=== PATIENT | female | born 1975 | race Caucasian/White ===

== ENCOUNTER → 2016-06-07 | Outpatient (CLI) | payer OTHER ==
--- NOTE | 2016-06-07 08:19 | US ---
EXAMINATION TYPE: US abdomen complete DATE OF EXAM: 06/07/2016 8:06 AM COMPARISON: NONE CLINICAL HISTORY: pt states rt upper quad and rt flank pain x at least 2 months, unable to eat. EXAM MEASUREMENTS: Liver Length: 15.9cm Gallbladder Wall: 0.2cm CBD: 0.3cm Spleen: 9.2cm Right Kidney: 11.5 x 4.0 x 5.3cm Left Kidney: 10.4 x 5.9 x 5.8cm Findings: Pancreas: Pancreas limited by bowel gas Liver: wnl Gallbladder: wnl, no wall thickening Evidence for sonographic Bustos's sign: no CBD: wnl Spleen: wnl Right Kidney: wnl Left Kidney: wnl Upper IVC: wnl Abd Aorta: wnl The liver is homogenous. The intrahepatic portion of the IVC and proximal abdominal aorta are within normal limits. There is no evidence of cholelithiasis. Common bile duct is unremarkable. The sple en is unremarkable. Kidneys are symmetric and free of hydronephrosis. No renal lesions are seen. IMPRESSION: 1. No acute process. Normal Values: Liver Length: < 16cm wnl, 17-18cm upper limits, >18cm enlarged Spleen Length = < 13cm Renal Length = 9 - 12cm GB Wall: < 0.3cm CBD: < 0.6cm or < 1.0cm post cholecystectomy
--- NOTE | 2016-06-07 09:05 | FL ---
EXAMINATION TYPE: FL UGI DATE OF EXAM: 06/07/2016 8:58 AM COMPARISON: NONE HISTORY: Abdominal pain and reflux with heartburn TECHNIQUE: A single/double contrast UGI study is performed. FINDINGS: [place] Coverer image of the abdomen shows no gross abnormality. The esophagus shows normal motility and emptying into the stomach. There is evidence of a small to mo derate-sized hiatal hernia with extensive gastroesophageal reflux. No evidence of obstruction althoug h there is mild irregularity along the distal esophagus which could be seen with esophagitis. Mucosal lesion not excluded. The stomach shows normal distensibility, peristalsis, and mucosal folds. No ev idence of any mass or ulcer disease. No significant gastroesophageal reflux was seen during real gala e performance of this study. The duodenal bulb, sweep, and proximal small bowel loops are unremarkable. IMPRESSION: 1. Small moderate sized hiatal hernia with extensive gastroesophageal reflux. 2. Slight irregularity of the distal mucosal esophagus most likely in the basis of reflux esophagitis . Correlate with direct visualization to exclude Hinds's esophagus or mucosal lesion.
== END | disposition home or self-care (01) ==
LOC: RADFLWHC 07:44
PROVIDERS: ATTEND Family Medicine
DX: K44.9 Diaphragmatic hernia without obstruction or gangrene (principal); K21.9 Gastro-esophageal reflux disease without esophagitis
CPT/HCPCS: 74240; 76700

== ENCOUNTER 2016-07-01 07:15 | Day surgery (SDC) | payer OTHER ==
[2016-06-28 11:56] VITALS: BMI 26.6
[~2016-07-01 07:15] MED LIST: LACTATED RINGERS 1,000 ML IV SCH
[2016-07-01] MEDS ORDERED: LACTATED RINGERS 1,000 ML IV ONE ×2 (07:26→08:01)
[2016-07-01 07:28] VITALS: RESP 16; TEMP 96.9
[2016-07-01] MEDS ORDERED: LIDOCAINE 1% INJ 10MG/ML (20 ML MDV) ONE (07:41)
[2016-07-01] MEDS ORDERED: PROPOFOL 10 MG/ML 20 ML VIAL IV ONE (07:41)
--- NOTE | 2016-07-01 07:50 | P.GSHP ---
History of Present Illness H&P Date: 07/01/16 Chief Complaint: GERD Is a 40-year-old female with long-standing problems reflux esophagitis. Patient states that she's had reflux for years. Apparently her esophagram shows evidence of reflux Past Medical History Past Medical History: Diabetes Mellitus History of Any Multi-Drug Resistant Organisms: None Reported Past Surgical History: No Surgical Hx Reported Past Anesthesia/Blood Transfusion Reactions: No Reported Reaction Additional Past Anesthesia/Blood Transfusion Reaction / Comment(s): FIRST ANESTHETIC Past Psychological History: Anxiety, Panic Disorder Smoking Status: Current every day smoker Past Alcohol Use History: Rare Additional Past Alcohol Use History / Comment(s): STARTED SMOKING AT AGE 31 SMOKES 1/2PPD Past Drug Use History: None Reported - Past Family History Mother Family Medical History: No Reported History Medications and Allergies Home Medications Medication Instructions Recorded Confirmed Type Acetaminophen Tab [Tylenol Tab] 650 mg PO Q4H PRN 01/01/16 07/01/16 History LORazepam [Ativan] 2 mg PO TID PRN 04/01/16 07/01/16 History Methocarbamol [Robaxin] 500 mg PO BID PRN 04/01/16 07/01/16 History Ranitidine HCl [Zantac] 150 mg PO BID 06/28/16 07/01/16 History Sucralfate [Carafate] 1 gm PO QID 06/28/16 07/01/16 History Allergies Allergy/AdvReac Type Severity Reaction Status Date / Time Penicillins Allergy Anaphylaxis Verified 07/01/16 07:24 Surgical - Exam Vital Signs Temp Pulse Resp BP Pulse Ox 96.9 F L 84 16 118/78 99 07/01/16 07:26 07/01/16 07:26 07/01/16 07:26 07/01/16 07:26 07/01/16 07:26 - General well developed, no distress - Eyes PERRL - ENT normal pinna - Neck no masses - Respiratory normal expansion - Cardiovascular Rhythm: regular - Abdomen Abdomen: soft, non tender Assessment and Plan Plan: GERD. We'll perform EGD.
--- NOTE | 2016-07-01 07:57 | P.OP ---
Date of Procedure: 07/01/16 Preoperative Diagnosis: GERD Postoperative Diagnosis: Antral gastritis Large hiatal hernia Esophagitis Procedure(s) Performed: EGD Anesthesia: MAC Surgeon: Brandon Simon Pathology: other (Antral, esophagus) Condition: stable Disposition: PACU Description of Procedure: The patient's placed on the endoscopy table in the lateral position. She received IV sedation. The gastroscope some placed oropharynx passed into the esophagus and into the stomach. Scope was then placed through the pylorus. The first and second portion of duodenum appeared normal. Scope was then brought back the antrum and this appeared mildly inflamed. A biopsies was performed. The scope was then retroflexed and there was a large hiatal hernia seen. The GE junction was at 38 cm. There is evidence of esophagitis. The distal esophagus was biopsied. The proximal esophagus appeared normal. Scope was withdrawn for patient.
[2016-07-01] MEDS ORDERED: IV FLUID CONTINUATION 1,000 ML IV ONE (08:01)
[2016-07-01 08:25] VITALS: BP 117/83; PULSE 68
== END 2016-07-01 08:58 | disposition home or self-care (01) ==
LOC: ORWHC2ENDO 07:15
PROVIDERS: ATTEND Surgery
DX: K21.0 Gastro-esophageal reflux disease with esophagitis (principal); K29.50 Unspecified chronic gastritis without bleeding; K44.9 Diaphragmatic hernia without obstruction or gangrene; F39 Unspecified mood [affective] disorder; F17.200 Nicotine dependence, unspecified, uncomplicated; Z88.0 Allergy status to penicillin; Z79.899 Other long term (current) drug therapy
CPT/HCPCS: 81025; 88305; 88342; 43239; J2001; J2704

== ENCOUNTER 2016-07-24 14:54 | Day surgery (SDC) | payer OTHER ==
[2016-07-22 09:27] VITALS: BMI 25.8
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
[~2016-07-24 14:54] MED LIST changes: +CLINDAMYCIN 900 MG in DEXTROSE 5% IN WATER 50 ML IVPB ONE; +DEXAMETHASONE SOD PHOSPHATE 10 MG/ML 1 ML VIAL IV ONE; +GENTAMICIN 320 MG in SODIUM CHLORIDE 0.9% 100 ML IVPB ONE; +HEPARIN SODIUM,PORCINE 5,000 UNIT/ML 1 ML VIAL SQ ONE; +HYDROmorphone 1 MG/ML 1 ML SYRINGE IVP PRN; +MIDAZOLAM 2 MG/2 ML VIAL IV PRN; +ONDANSETRON 4 MG/2 ML VIAL IVP ONE
[2016-07-24 15:08] VITALS: BP 142/93; PULSE 98; RESP 16; TEMP 98.1
== END 2016-07-24 15:17 | disposition home or self-care (01) ==
LOC: 2ORWHC 14:54 → UNDOADMIN 14:54 → OR 14:54 → EDSTATUS 15:05 → OR 15:17 → UNDODISIN 15:17
PROVIDERS: ATTEND Surgery
DX: K21.0 Gastro-esophageal reflux disease with esophagitis (principal); Z53.8 Procedure and treatment not carried out for other reasons; K44.9 Diaphragmatic hernia without obstruction or gangrene; F41.9 Anxiety disorder, unspecified; F41.0 Panic disorder [episodic paroxysmal anxiety]; F17.200 Nicotine dependence, unspecified, uncomplicated; Z79.891 Long term (current) use of opiate analgesic; Z79.899 Other long term (current) drug therapy; Z88.0 Allergy status to penicillin

== ENCOUNTER 2016-07-25 09:15 | Inpatient (IN) | payer OTHER ==
[2016-07-25] MEDS ORDERED: LACTATED RINGERS 1,000 ML IV ONE ×2 (10:25→12:53)
[2016-07-25] MEDS ORDERED: LIDOCAINE 1% 20 ML VIAL (10MG/ML) FOR IV START INTRADERMA ONE (10:25)
[2016-07-25] MEDS ORDERED: HEPARIN SODIUM,PORCINE 5,000 UNIT/ML 1 ML VIAL SQ ONE ×2 (10:38→11:00)
[2016-07-25] MEDS ORDERED: HYDROmorphone 1 MG/ML 1 ML SYRINGE IVP PRN ×2 (10:39→12:53)
[2016-07-25] MEDS ORDERED: SCOPOLAMINE 1.5MG/72HR PATCH TRANSDERM ONE (10:39)
[2016-07-25] MEDS ORDERED: ONDANSETRON 4 MG/2 ML VIAL IVP ONE ×2 (10:39→13:43)
[2016-07-25] MEDS ORDERED: LIDOCAINE 1% 20 ML VIAL (10MG/ML) FOR IV START INTRADERMA PRN (10:39)
[2016-07-25] MEDS ORDERED: DEXAMETHASONE SOD PHOSPHATE 10 MG/ML 1 ML VIAL IV ONE (10:39)
[2016-07-25] MEDS ORDERED: MIDAZOLAM 2 MG/2 ML VIAL IV PRN (10:39)
[2016-07-25] MEDS ORDERED: CLINDAMYCIN 900 MG in DEXTROSE 5% IN WATER 50 ML IVPB ONE ×2 (11:00)
[2016-07-25] MEDS ORDERED: MIDAZOLAM 2 MG/2 ML VIAL ONE (11:58)
[2016-07-25] MEDS ORDERED: SUCCINYLCHOLINE CHLORIDE 100 MG/5 ML SYR IV ONE (11:58)
[2016-07-25] MEDS ORDERED: PROPOFOL 10 MG/ML 20 ML VIAL IV ONE (11:58)
[2016-07-25] MEDS ORDERED: ROCURONIUM BROMIDE 10 MG/ML 10 ML VIAL IV ONE (11:58)
[2016-07-25] MEDS ORDERED: HYDROmorphone (PF) 1 MG/ML ONE (11:58)
[2016-07-25] MEDS ORDERED: PHENYLEPHRINE-0.9% NACL SYG 1 MG/10 ML SYRINGE ONE (11:58)
[2016-07-25] MEDS ORDERED: fentaNYL (PF) 50 MCG/ML 2 ML AMP ONE (11:58)
[2016-07-25] MEDS ORDERED: GLYCOPYRROLATE 0.2 MG/ML 2 ML VIAL ONE (11:58)
[2016-07-25] MEDS ORDERED: LIDOCAINE 1% INJ 10MG/ML (20 ML MDV) ONE (11:58)
[2016-07-25] MEDS ORDERED: NEOSTIGMINE 1 MG/ML 10 ML VIAL ONE (11:58)
[2016-07-25] MEDS ORDERED: BUPIVACAIN-EPI 0.25%-1:200,000 30 ML VIAL SQ ONE (12:18)
[2016-07-25] MEDS: LACTATED RINGERS 1,000 ML IV SCH ×2 (12:42→21:16)
[2016-07-25] MEDS ORDERED: ONDANSETRON 4 MG/2 ML VIAL IVP PRN (12:53)
[2016-07-25] MEDS ORDERED: NALOXONE 0.4 MG/ML 1 ML VIAL IV PRN (12:53)
--- NOTE | 2016-07-25 12:53 | P.OP ---
Date of Procedure: 07/25/16 Preoperative Diagnosis: GERD Postoperative Diagnosis: GERD Procedure(s) Performed: Laparoscopic Harvey fundal plication Anesthesia: ELLEN Surgeon: Brandon Simon Estimated Blood Loss (ml): 5 Pathology: none sent Condition: stable Disposition: PACU Description of Procedure: he was placed on the operating table in the supine position. The patient received general anesthesia. And was placed in dorsal lithotomy position. The patient was prepped and draped in the usual sterile fashion. The skin incision sites were anesthetized with 1% local Xylocaine. The skin was incised in the left periumbilical area and then using a blade less 5 mm trocar under direct visualization panel cavity was entered. After adequate insufflation the laparoscope was then placed into the peritoneal cavity. Next a 5 mm trochars placed in the right epigastric position. Another 5 millimeter trocar the right lateral position. Another 5 millimeter trocar in the left lateral position a 5 mm trocar is placed in the left epigastric position. And then the initial 5 mm trocar was exchanged for a 10 mm trocar. The left lateral lobe liver was retracted. The hernia was seen. The crural defect was then dissected using the Harmonic scissors device. A 360 crural dissection was performed the esophagus stomach was reduced back into the peritoneal Cavity. The crural defect was then closed using 2-0 Ethibond suture. Next the fundus of the stomach was mobilized using the [place] scissors device. and then a 58-Russian bougie dilator was placed oropharynx passed into the esophagus and stomach the fundal plication wrap was then performed by grasping the fundus posteriorly and bringing it around the esophagus and stomach fundoplication was then performed using 2-0 Ethibond suture. Care was taken that the fundal location rested over top of the intra-abdominal esophagus. There was no injury seen to the stomach or esophagus. The dilator was then withdrawn. The abdomen was irrigated there is no bleeding seen. The trochars were then withdrawn and then skin incision sites were closed using 3-0 Monocryl suture Steri-Strips are applied. Patient thought procedure well and sent to recovery room in stable condition.
[2016-07-25] MEDS: KETOROLAC 30 MG/ML 1 ML VIAL IVP SCH ×3 (13:35→16:02)
[2016-07-25] MEDS ORDERED: HYDROmorphone 1 MG/ML 1 ML SYRINGE IVP ONE (14:12)
--- NOTE | 2016-07-25 16:54 | FL ---
EXAMINATION TYPE: FL UGI w esophagus DATE OF EXAM: 07/25/2016 4:49 PM LIMITED UGI-ESOPHAGRAM: CLINICAL HISTORY: History of hiatal hernia and reflux-like symptoms without improvement on medicatio n status post Ga fundoplication surgery earlier today TECHNIQUE: Limited esophagram is performed utilizing 20 oz of Omnipaque 350. A total of 36 seconds o f fluoroscopic time was utilized during procedure. Comparison is made with upper GI study June 07, 2016 FINDINGS: The patient swallowed contrast without difficulty or delay. Esophageal peristalsis and mo tility are within normal limits. There is some delay in flow of contrast along the diaphragmatic hiat us into the stomach, there is no evidence of contrast extravasation to suggest leak. Small amount raman e air under right hemidiaphragm is noted presumed postsurgical No persistent hiatal hernia is seen. P atient remains asymptomatic. IMPRESSION: No evidence of leak or significant obstruction status post Ga fundoplication surgery earlier today. Mild to borderline moderate obstruction at diaphragmatic hiatus is noted but the patie nt is noted to remain asymptomatic.
[2016-07-25] MEDS: HYDROcodone/APAP 5-325MG 1 EACH TAB PO PRN ×2 (17:38→22:41)
[2016-07-26] MEDS: KETOROLAC 30 MG/ML 1 ML VIAL IVP SCH ×2 (00:35→08:42)
[2016-07-26 02:17] VITALS: BP 122/63; PULSE 97; RESP 16; TEMP 99.4
[2016-07-26] MEDS: HYDROcodone/APAP 5-325MG 1 EACH TAB PO PRN ×2 (04:45→10:15)
[2016-07-26 10:12] VITALS: BMI 26.6
--- NOTE | 2016-07-26 16:38 | CONS ---
DATE OF CONSULTATION: 07/26/[address] Simon. CHIEF COMPLAINT: Reflux esophagitis. HISTORY OF PRESENT ILLNESS: This lady is in for elective Harvey fundoplasty. REVIEW OF SYSTEMS: She has had no neurologic problems. No chest pain or shortness of breath, hematemesis, melena, hematochezia, jaundice, hepatitis, hematuria, frequency, urgency, etc. Past medical history, family history, history and personal and social histories: Otherwise unremarkable and noncontributory and can be found in her history and physical. ALLERGIC TO PENICILLIN. She has been on: 1. Carafate. 2. Zantac. 3. [place]. 4. Methocarbamol. 5. Prilosec. 6. Ativan. PHYSICAL EXAMINATION: Blood pressure 110/70 with pulse 82, respirations 16, temperature 98.8. GENERAL: She appeared to be well-developed, well-nourished, in no acute distress. SKIN: Skin color is normal. Skin is warm and dry. Lymph nodes are not enlarged. Head, ears, eyes, mouth, and throat were normal. NECK: Neck veins not distended. Thyroid is not enlarged. Chest is clear. Cardiac exam is normal in size and nontender. EXTREMITIES: Normal. NEUROLOGICAL: Intact. She is admitted to the hospital with diagnosis: Reflux esophagitis. RECOMMENDATIONS: None
--- NOTE | 2016-07-26 16:43 | PN ---
DATE OF SERVICE: 07/26/2016 CHIEF COMPLAINT: Status post Harvey fundoplasty. HISTORY OF PRESENT ILLNESS: This lady is doing well and she is having no abdominal pain, fever, chills, etc. She has had no dysphagia. PHYSICAL EXAMINATION: CHEST: Clear. CARDIAC: Normal. ABDOMEN: Soft, nontender. Incisions look good. IMPRESSION: Status post Harvey fundoplasty for reflux. PLAN: Home today and follow up with Dr. Simon as well as our office.
--- NOTE | 2016-11-15 12:47 | P.DS ---
Providers Date of admission: 07/25/16 09:45 Expected date of discharge: 07/26/16 Attending physician: Brandon Simon Consults: 07/25/16 12:53 Consult Physician Routine Consulting Provider: George Pop Consult Reason/Comments: Medical management Do you want consulting provider notified?: Yes Primary care physician: George Ungerhven Hospital Course: This a 41-year-old female who underwent laparoscopic dislocation. Her postoperative stay was unremarkable. Please see chart for details. Procedures: Her scalp Harvey fundal plication Patient Condition at Discharge: Good Plan - Discharge Summary New Discharge Prescriptions: New HYDROcodone/APAP 7.5-325MG [[place] 7.5-325] 1 tab PO Q6HR PRN #28 tab PRN Reason: Pain Continue LORazepam [Ativan] 2 mg PO TID PRN PRN Reason: Anxiety HYDROcodone/APAP 5-325MG [[place] 5-325] 1 tab PO Q6H PRN MDD 4 TABS/24HR PRN Reason: Moderate Pain Discontinued Ranitidine HCl [Zantac] 150 mg PO BID Discharge Medication List LORazepam [Ativan] 2 mg PO TID PRN 04/01/16 [History] HYDROcodone/APAP 5-325MG [[place] 5-325] 1 tab PO Q6H PRN MDD 4 TABS/24HR [History] HYDROcodone/APAP 7.5-325MG [[place] 7.5-325] 1 tab PO Q6HR PRN #28 tab 07/26/16 [ Rx] Follow up Appointment(s)/Referral(s): George Pop MD [Primary Care Provider] - 08/05/16 12:30 pm Brandon Simon MD [STAFF PHYSICIAN] - 08/08/16 2:20 pm Patient Instructions/Handouts: *Surgery [facility] - ([facility]) Lap Harvey Fundiplication Post-Op Instructions Activity/Diet/Wound Care/Special Instructions: No heavy lifting, pushing, or pulling items greater than 10 pounds. Full liquid diet for 2 weeks. No caffeinated beverages or straws. Shower daily, no soaking in bath tubs, pools, or hot tubs. No driving while taking pain medication. Notify surgeon with any signs or symptoms of infection, increased pain, or not tolerating diet. Discharge Disposition: HOME SELF-CARE
== END 2016-07-26 13:36 | disposition home or self-care (01) | DRG 328 ==
LOC: 2ORWHC 09:45 → UNDOADMIN 14:20 → 3SUR 14:33
PROVIDERS: ADMIT Surgery; ATTEND Surgery
PROC: 0DV44ZZ Restriction of Esophagogastric Junction, Percutaneous Endoscopic Approach (ICD-10-PCS; principal; 2016-07-25 12:15)
DX: K21.0 Gastro-esophageal reflux disease with esophagitis (principal); F41.9 Anxiety disorder, unspecified; K44.9 Diaphragmatic hernia without obstruction or gangrene; M54.9 Dorsalgia, unspecified; F41.0 Panic disorder [episodic paroxysmal anxiety]; F17.200 Nicotine dependence, unspecified, uncomplicated; Z88.0 Allergy status to penicillin; Z79.891 Long term (current) use of opiate analgesic; Z79.899 Other long term (current) drug therapy; Z87.828 Personal history of other (healed) physical injury and trauma
CPT/HCPCS: 74240; 81025

== ENCOUNTER → 2016-09-11 | Outpatient (CLI) | payer OTHER ==
--- NOTE | 2016-09-11 15:38 | CT ---
EXAMINATION TYPE: CT angio chest DATE OF EXAM: 09/11/2016 3:10 PM COMPARISON: NONE HISTORY: Shortness of breath and elevated d-dimer. CT DLP: 608.00 mGycm. Automated Exposure Control for Dose Reduction was Utilized. CONTRAST: CTA scan of the thorax is performed with IV Contrast, patient injected with 76 mL of Omnipaque 350, p ulmonary embolism protocol. MIP Images are created on CT scanner and reviewed. FINDINGS: LUNGS: Mild apical scarring bilaterally is present, left greater than right. Minimal linear scarring or atelectasis posterior lateral right lung base is present. No suspicious groundglass opacity or con solidation is seen. No pleural effusion or pneumothorax is present bilaterally. No concerning parench ymal nodule or mass is identified. MEDIASTINUM: There is suboptimal bolus with more dense contrast in the aorta and equal contrast seen in right and left heart systems. Dense pooling contrast in the SVC is present. Worst opacified vesse ls is the pulmonary arterial system No large saddle pulmonary embolism is seen. Smaller segmental and subsegmental PE cannot be excluded on this exam. There are no greater than 1 cm hilar or mediastina l lymph nodes. No cardiomegaly or pericardial effusion is seen. OTHER: Surgical changes from Ga fundoplication surgery are seen just below level of diaphragmatic hiatus. No recurrent hiatal hernia is seen. IMPRESSION: 1. Suboptimal study, no large central pulmonary embolism, smaller segmental and subsegmental PE canno t be excluded on this exam. 2. No suspicious acute pulmonary process is evident.
== END ==
LOC: RADCTMAIN 14:47
PROVIDERS: ATTEND Family Medicine
DX: R06.02 Shortness of breath (principal); R07.9 Chest pain, unspecified; R79.89 Other specified abnormal findings of blood chemistry
CPT/HCPCS: 71275; Q9967

== ENCOUNTER 2017-01-19 01:36 | Emergency (ER) | payer OTHER ==
[2017-01-19] MEDS ORDERED: ASPIRIN 81 MG CHEW PO STA (01:55)
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
[2017-01-19 02:18] LABS: Basophils # (A) 0.1 k/uL (0-0.2); Basophils % (A) 1 %; CH 31.6; CHCM 34.7; Eosinophils # (A) 0.1 k/uL (0-0.7); Eosinophils % (A) 1 %; HCT 40.5 % (34.0-46.0); HDW 2.39; HGB 13.6 gm/dL (11.4-16.0); Luc # (Auto) 0.14; Luc % (Auto) 2; Lymphocytes # (A) 2.9 k/uL (1.0-4.8); Lymphocytes % (A) 35 %; MCH 30.7 pg (25.0-35.0); MCHC 33.5 g/dL (31.0-37.0); MCV 91.5 fL (80.0-100.0); Mean Platelet Volume 7.4; Monocytes # (A) 0.4 k/uL (0-1.0); Monocytes % (A) 5 %; Neutrophils # (A) 4.7 k/uL (1.3-7.7); Neutrophils % (A) 56 %; RBC 4.43 m/uL (3.80-5.40); RDW 13.7 % (11.5-15.5); WBC 8.4 k/uL (3.8-10.6); WBC (Perox) 8.04
[2017-01-19 02:27] LABS: Partial Thromboplastin Time 22.9 sec (22.0-30.0); Prothrombin Time 10.1 sec (9.0-12.0)
[2017-01-19 02:28] LABS: ALT 28 U/L (9-52); AST 19 U/L (14-36); Alkaline Phosphatase 62 U/L (38-126); Amylase 49 U/L (30-110); Anion Gap 13 mmol/L; Blood Urea Nitrogen 21 mg/dL (7-17); Calcium 9.6 mg/dL (8.4-10.2); Carbon Dioxide 24 mmol/L (22-30); Chloride 104 mmol/L (98-107); Glucose 94 mg/dL (74-99); Magnesium 1.9 mg/dL (1.6-2.3); Non-African American GFR(MDRD) >60 (>60 ml/min/1.73 sqM); Sodium 141 mmol/L (137-145); Total Bilirubin 0.3 mg/dL (0.2-1.3)
--- NOTE | 2017-01-19 02:38 | XR ---
EXAM: XR Chest, 2 Views CLINICAL HISTORY: Reason: Chest Pain TECHNIQUE: Frontal and lateral views of the chest. COMPARISON: No relevant prior studies available. FINDINGS: Lungs: Unremarkable. No consolidation. Pleural space: Unremarkable. No pneumothorax. Heart: Unremarkable. No cardiomegaly. Mediastinum: Unremarkable. Bones/joints: Unremarkable. IMPRESSION: Normal chest x-rays.
[2017-01-19 02:40] LABS: Creatine Kinase 177 U/L (30-135)
[2017-01-19 02:53] LABS: Creatine Kinase MB 1.1 ng/mL (0.0-2.4); Troponin I <0.012 ng/mL (0.000-0.034)
[2017-01-19] MEDS ORDERED: KETOROLAC 30 MG/ML 1 ML VIAL IVP STA (03:11)
[2017-01-19 03:21] VITALS: BP 142/82; PULSE 53; RESP 16; TEMP 97.9
== END 2017-01-19 03:25 | disposition home or self-care (01) ==
LOC: EC 01:36
DX: S46.912A Strain of unspecified muscle, fascia and tendon at shoulder and upper arm level, left arm, initial encounter (principal); R07.89 Other chest pain; R11.10 Vomiting, unspecified; F41.9 Anxiety disorder, unspecified; F41.0 Panic disorder [episodic paroxysmal anxiety]; F17.200 Nicotine dependence, unspecified, uncomplicated; Z79.899 Other long term (current) drug therapy; Z88.0 Allergy status to penicillin; X58.XXXA Exposure to other specified factors, initial encounter
CPT/HCPCS: 36415; 93005; 80053; 82150; 82550; 82553; 83690; 83735; 84484; 85025; 85610; 85730; 71020; 99284; 96374; J1885

== ENCOUNTER → 2017-03-18 | Outpatient (CLI) | payer OTHER ==
--- NOTE | 2017-03-18 12:04 | NM ---
EXAMINATION TYPE: NM hepatobiliary w EF DATE OF EXAM: 03/18/2017 COMPARISON: Ultrasound gallbladder 03/17/2017, CT 03/17/2017 HISTORY: Unspecified abdomen pain TECHNIQUE: After the intravenous administration of 5.76 mCi Tc 99m Mebrofenin hepatobiliary scintigra phy is performed. Immediate images post injection. FINDINGS: There is satisfactory initial accumulation of tracer by the liver. The gallbladder is visualized wit hin 10 minutes. The small bowel activity is noted within 4 minutes. At one hour 8 ounces of oral en sure plus is given to mimic CCK and gallbladder ejection fraction is calculated at 64 %, in the yany l range. Therefore there is no scintigraphic evidence of cystic or common bile duct obstruction to s uggest acute cholecystitis or gallbladder dyskinesia. IMPRESSION: Exam is within normal limits.
== END ==
LOC: RADNMMAIN 09:09
PROVIDERS: ATTEND Emergency Medicine
DX: R10.9 Unspecified abdominal pain (principal)
CPT/HCPCS: 78226; A9537

== ENCOUNTER 2017-05-31 12:44 | Emergency (ER) | payer OTHER ==
[2017-05-31] MEDS ORDERED: SODIUM CHLORIDE 0.9% 1,000 ML IV STA (13:13)
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
[2017-05-31 13:37] LABS: Basophils # (A) 0.1 k/uL (0-0.2); Basophils % (A) 1 %; Eosinophils # (A) 0.2 k/uL (0-0.7); Eosinophils % (A) 2 %; HCT 36.9 % (34.0-46.0); HGB 12.5 gm/dL (11.4-16.0); Lymphocytes # (A) 1.6 k/uL (1.0-4.8); Lymphocytes % (A) 20 %; MCH 30.1 pg (25.0-35.0); MCV 88.7 fL (80.0-100.0); Mean Platelet Volume 6.6; Monocytes # (A) 0.2 k/uL (0-1.0); Monocytes % (A) 3 %; Neutrophils # (A) 6.1 k/uL (1.3-7.7); Neutrophils % (A) 74 %; Platelet Count 305 k/uL (150-450); RBC 4.16 m/uL (3.80-5.40); RDW 12.4 % (11.5-15.5); WBC 8.3 k/uL (3.8-10.6)
[2017-05-31 13:47] LABS: ALT 22 U/L (9-52); AST 15 U/L (14-36); Alkaline Phosphatase 66 U/L (38-126); Anion Gap 12 mmol/L; Blood Urea Nitrogen 12 mg/dL (7-17); Calcium 10.5 mg/dL (8.4-10.2); Carbon Dioxide 23 mmol/L (22-30); Chloride 103 mmol/L (98-107); Glucose 133 mg/dL (74-99); Potassium 3.7 mmol/L (3.5-5.1); Sodium 138 mmol/L (137-145); Total Bilirubin 0.2 mg/dL (0.2-1.3); Total Protein 6.9 g/dL (6.3-8.2)
[2017-05-31 13:57] LABS: Amorphous Sediment,Urine Few /hpf; Appearance,Urine Cloudy (Clear); Bacteria,Urine Rare /hpf; Bilirubin,Urine Negative (Negative); Blood,Urine Negative (Negative); Color,Urine Dark Yellow; Glucose,Urine (UA) Negative (Negative); Ketones,Urine Negative (Negative); Leukocyte Esterase,Urine Negative (Negative); Mucus,Urine Many /hpf; Nitrite,Urine Negative (Negative); PH, Urine 5.5 (5.0-8.0); Protein,Urine 1+ (Negative); RBC,Urine 6 /hpf (0-5); Specific Gravity,Urine 1.025 (1.001-1.035); Sperm,Urine Rare /hpf; Squamous Epithelial Cell,Urine 3 /hpf (0-4); Urobilinogen,Urine <2.0 mg/dL (<2.0); WBC,Urine 3 /hpf (0-5)
--- NOTE | 2017-05-31 14:10 | US ---
EXAMINATION TYPE: US OB <= 14 wk fetus DATE OF EXAM: 05/31/2017 COMPARISON: NONE CLINICAL HISTORY: Pain. EXAM PERFORMED: Transabdominal (TA) EXAM MEASUREMENTS: GESTATIONAL AGE / DATING Physician Established: not yet established Dates by LMP: (11 weeks/1 days) EDC: 12/19/17 Dates by First Scan: 1st scan today Dates by Current Scan:(11 weeks/1 days) EDC: 12/19/17 MATERNAL ANATOMY Uterus: 13.5 x 8.0 x 9.8cm Right Ovary: 2.5 x 2.0x 2.1cm Left Ovary: 4.1 x 3.6 x 3.5cm Post CDS / Adnexa: wnl GESTATION / SURVEY CRL: 4.3 (11 weeks/1 days) Yolk Sac (normal less than 6mm): not seen Heart Rate: 167 bpm Rhythm: Normal IUP: Viable IUP Date of LMP: 03/14/17 Beta HcG (if available): Not available at this time IMPRESSION: The ultrasound gestational age is 11 weeks 1 day. I see no complicating process.
[2017-05-31 14:28] LABS: HCG,Quantitative Serum 60296.4 mIU/mL
[2017-05-31 14:54] VITALS: BP 122/62; PULSE 71; RESP 18; TEMP 97.7
== END 2017-05-31 14:54 | disposition home or self-care (01) ==
LOC: EC 12:44
DX: O99.511 Diseases of the respiratory system complicating pregnancy, first trimester (principal); J01.90 Acute sinusitis, unspecified; O99.89 Other specified diseases and conditions complicating pregnancy, childbirth and the puerperium; R10.30 Lower abdominal pain, unspecified; O36.0910 Maternal care for other rhesus isoimmunization, first trimester, not applicable or unspecified; O99.331 Smoking (tobacco) complicating pregnancy, first trimester; F17.200 Nicotine dependence, unspecified, uncomplicated; Z98.890 Other specified postprocedural states; Z87.19 Personal history of other diseases of the digestive system; Z88.0 Allergy status to penicillin; Z3A.11 11 weeks gestation of pregnancy
CPT/HCPCS: 36415; 76801; 80053; 81001; 84702; 85025; 86900; 86901; 87086; 96360; 99284

== ENCOUNTER → 2017-07-08 | Outpatient (CLI) | payer OTHER ==
[2017-07-08 22:56] LABS: Hemoglobin A1C 4.9 % (4.0-6.0)
[2017-07-09 05:41] LABS: Toxoplasma Antibody (IgG) 93.3 IU/mL (<7.2); Toxoplasma Antibody (IgM) 30.5 AU/mL (<8.0)
== END | disposition home or self-care (01) ==
LOC: LABWHC1 15:11
PROVIDERS: ATTEND Obstetrics & Gynecology
DX: Z34.82 Encounter for supervision of other normal pregnancy, second trimester (principal); T75.89XA Other specified effects of external causes, initial encounter
CPT/HCPCS: 36415; 82947; 83036; 86777; 86778

== ENCOUNTER 2017-07-21 16:51 | Emergency (ER) | payer OTHER ==
[2017-07-21 17:31] VITALS: RESP 18
[2017-07-21 17:39] LABS: Appearance,Urine Clear (Clear); Bilirubin,Urine Negative (Negative); Blood,Urine Negative (Negative); Color,Urine Colorless; Glucose,Urine (UA) Negative (Negative); Ketones,Urine Negative (Negative); Leukocyte Esterase,Urine Negative (Negative); Nitrite,Urine Negative (Negative); Protein,Urine Negative (Negative); Specific Gravity,Urine 1.002 (1.001-1.035); Urobilinogen,Urine <2.0 mg/dL (<2.0)
[2017-07-21] MEDS ORDERED: SODIUM CHLORIDE 0.9% 1,000 ML IV STA (18:50)
--- NOTE | 2017-07-21 18:56 | ED ---
Female Urogenital HPI - General Chief complaint: Urogenital Stated complaint: Urogenital, 19 wks preg Time Seen by Provider: 07/21/17 18:40 Source: patient Mode of arrival: ambulatory Limitations: no limitations - History of Present Illness Initial comments: Pt , 3 SAB, currently 19 weeks preg. Follows with OB in [place] for high risk. Patient presents with "pressure", that is mild across pelvic region for the past 2 hours. Patient denies cramps, contractions. Patient denies vaginal bleeding or discharge, denies fluid leakage, N/V, fevers, chills. Patient does note that she's had 4-5 episodes of diarrhea today. Patient also states she's been urinating more frequently today than normally. MD Complaint: pelvic pain - Related Data Home Medications Medication Instructions Recorded Confirmed Oxymetazoline 0.05% Nasl [place] 2 spray EA NOSTRIL BID PRN 07/21/17 07/21/17 [Afrin 0.05% Nasal [place]] Pedi Multivit No.25/Folic Acid 300 mcg PO DAILY 07/21/17 07/21/17 [Fl[place] Multivit Chew Tab] Allergies Allergy/AdvReac Type Severity Reaction Status Date / Time Penicillins Allergy Anaphylaxis Verified 07/21/17 18:53 Review of Systems ROS Statement: Those systems with pertinent positive or pertinent negative responses have been documented in the HPI. ROS Other: All systems not noted in ROS Statement are negative. Constitutional: Denies: fever, chills, weakness Eyes: Denies: vision change ENT: Denies: throat pain, congestion Respiratory: Denies: cough, dyspnea Cardiovascular: Denies: chest pain, palpitations, syncope Endocrine: Denies: fatigue Gastrointestinal: Reports: abdominal pain, diarrhea. Denies: nausea, vomiting, constipation, hematemesis, melena, hematochezia Genitourinary: Reports: frequency. Denies: hematuria, discharge Musculoskeletal: Denies: back pain Skin: Denies: rash, change in color Neurological: Denies: headache Past Medical History Past Medical History: GERD/Reflux Additional Past Medical History / Comment(s): BACK PAIN, HIATAL HERNIA., History of Any Multi-Drug Resistant Organisms: None Reported Past Surgical History: Hernia Repair Additional Past Surgical History / Comment(s): EGD Past Anesthesia/Blood Transfusion Reactions: No Reported Reaction Additional Past Anesthesia/Blood Transfusion Reaction / Comment(s): FIRST ANESTHETIC Past Psychological History: Anxiety, Panic Disorder Smoking Status: Former smoker Past Alcohol Use History: None Reported Past Drug Use History: None Reported - Past Family History Mother Family Medical History: No Reported History General Exam - General Exam Comments Initial Comments: Sitting up in bed. No acute distress. Conversing normally. Calm, pleasant. Limitations: no limitations General appearance: alert, in no apparent distress Head exam: Present: atraumatic, normocephalic Eye exam: Present: normal appearance, PERRL, EOMI ENT exam: Present: mucous membranes moist Neck exam: Present: normal inspection Respiratory exam: Present: normal lung sounds bilaterally. Absent: respiratory distress, wheezes, rales, rhonchi Cardiovascular Exam: Present: regular rate, normal rhythm GI/Abdominal exam: Present: soft, distended (Gravid). Absent: tenderness, guarding, rebound, rigid Extremities exam: Present: normal inspection Neurological exam: Present: alert, oriented X3 Psychiatric exam: Present: normal affect, normal mood Skin exam: Present: warm, dry, intact, normal color. Absent: rash, cyanosis, diaphoretic Course Vital Signs 07/21/17 17:29 Temperature 98.7 F Pulse Rate 87 Respiratory 18 Rate Blood Pressure 145/79 O2 Sat by Pulse 99 Oximetry Medical Decision Making - Medical Decision Making IV fluids given CBC, BMP, urinalysis all within normal ranges. Feel heart tones assessed by OB team, 140. Spoke with OB Dr. Stern, covering for pt's OB, updated patient condition results , requests OB RN come down to do evaluation of the cervix, states it exam is normal patient can be discharged home with outpatient follow-up. Patient evaluated in the ER by OB nurse, pelvic exam performed, states cervical os was closed, no vaginal bleeding or discharge appreciated, no abnormalities appreciated. Patient updated with results and plan. Was comfortably discharged home. Agrees to follow up with her OB in the morning. Return to ER for new or worsening symptoms. Pt understands and agrees. - Lab Data Result diagrams: 07/21/17 18:57 07/21/17 18:57 Lab Results 07/21/17 07/21/17 07/21/17 Range/Units 17:32 18:57 18:57 WBC 9.3 (3.8-10.6) k/uL RBC 4.00 (3.80-5.40) m/uL Hgb 12.0 (11.4-16.0) gm/dL Hct 36.4 (34.0-46.0) % MCV 91.0 (80.0-100.0) fL MCH 30.1 (25.0-35.0) pg MCHC 33.1 (31.0-37.0) g/dL RDW 13.0 (11.5-15.5) % Plt Count 254 (150-450) k/uL Neutrophils % 75 % Lymphocytes % 19 % Monocytes % 3 % Eosinophils % 1 % Basophils % 0 % Neutrophils # 7.0 (1.3-7.7) k/uL Lymphocytes # 1.8 (1.0-4.8) k/uL Monocytes # 0.3 (0-1.0) k/uL Eosinophils # 0.1 (0-0.7) k/uL Basophils # 0.0 (0-0.2) k/uL Sodium 138 (137-145) mmol/L Potassium 3.7 (3.5-5.1) mmol/L Chloride 106 (98-107) mmol/L Carbon Dioxide 22 (22-30) mmol/L Anion Gap 10 mmol/L BUN 9 (7-17) mg/dL Creatinine 0.53 (0.52-1.04) mg/dL Est GFR (MDRD) Af Amer >60 (>60 ml/min/1.73 sqM) Est GFR (MDRD) Non-Af >60 (>60 ml/min/1.73 sqM) Glucose 89 (74-99) mg/dL Calcium 10.2 (8.4-10.2) mg/dL Urine Color Colorless Urine Appearance Clear (Clear) Urine pH 6.0 (5.0-8.0) Ur Specific [place] 1.002 (1.001-1.035) Urine Protein Negative (Negative) Urine Glucose (UA) Negative (Negative) Urine Ketones Negative (Negative) Urine Blood Negative (Negative) Urine Nitrite Negative (Negative) Urine Bilirubin Negative (Negative) Urine Urobilinogen <2.0 (<2.0) mg/dL Ur Leukocyte Esterase Negative (Negative) Disposition Clinical Impression: Pelvic pain affecting Disposition: HOME SELF-CARE Condition: Good Instructions: Abdominal Pain in (ED) Additional Instructions: Follow-up with your OB doctor in the morning. Return to ER if new or worsening symptoms. Referrals: None,Stated [Primary Care Provider] - 1-2 days
[2017-07-21 19:04] LABS: Basophils % (A) 0 %; Eosinophils # (A) 0.1 k/uL (0-0.7); Eosinophils % (A) 1 %; HCT 36.4 % (34.0-46.0); Lymphocytes # (A) 1.8 k/uL (1.0-4.8); Lymphocytes % (A) 19 %; MCH 30.1 pg (25.0-35.0); MCHC 33.1 g/dL (31.0-37.0); Mean Platelet Volume 6.7; Monocytes # (A) 0.3 k/uL (0-1.0); Monocytes % (A) 3 %; Neutrophils % (A) 75 %; Platelet Count 254 k/uL (150-450); WBC 9.3 k/uL (3.8-10.6)
[2017-07-21 19:17] LABS: Anion Gap 10 mmol/L; Blood Urea Nitrogen 9 mg/dL (7-17); Calcium 10.2 mg/dL (8.4-10.2); Carbon Dioxide 22 mmol/L (22-30); Chloride 106 mmol/L (98-107); Glucose 89 mg/dL (74-99); Potassium 3.7 mmol/L (3.5-5.1); Sodium 138 mmol/L (137-145)
[2017-07-21 20:39] VITALS: BP 133/70; PULSE 80; TEMP 98.6
== END 2017-07-21 20:38 | disposition home or self-care (01) ==
LOC: EC 16:51
DX: O99.89 Other specified diseases and conditions complicating pregnancy, childbirth and the puerperium (principal); R10.2 Pelvic and perineal pain; R19.7 Diarrhea, unspecified; R35.0 Frequency of micturition; Z88.0 Allergy status to penicillin; Z87.891 Personal history of nicotine dependence; Z3A.19 19 weeks gestation of pregnancy; Z79.899 Other long term (current) drug therapy
CPT/HCPCS: 36415; 80048; 81003; 85025; 87086; 96360; 99284

== ENCOUNTER 2017-08-31 17:25 | Outpatient (CLI) | payer OTHER ==
[2017-08-31 18:17] VITALS: BP 132/80; PULSE 97; RESP 18; TEMP 97.9
--- NOTE | 2017-09-17 09:00 | P.MSEPDOC ---
Presenting Problems - Arrival Data Date of Arrival on Unit: 08/31/17 Time of Arrival on Unit: 17:30 Mode of Transport: Wheelchair - Complaint OB-Reason for Admission/Chief Complaint: Pain, Other Comment: shortness of breath with back pain Medical History - Information : 8 Para: 4 Term: 4 : 0 Abortions: Spontaneous or Elective: 4 Number of Living Children: 4 - Gestational Age Gestational Age by KESHAWN (wks/days): 28 Weeks and 2 Days Review of Systems - Review of Systems Constitutional: No problems Breast: No problems ENT: No problems Cardiovascular: No problems Respiratory: No problems Gastrointestinal: No problems Genitourinary: No problems Musculoskeletal: No problems Neurological: No problems Skin: No problems Comment: lungs clear throughout bilateral cummings Vital Signs - Temperature Temperature: 97.9 F Temperature Source: Oral - Pulse Right Brachial Pulse Rate: 97 Pulse Assessment Method: Automatic Cuff - Respirations Respiratory Rate: 18 Oxygen Delivery Method: Room Air O2 Sat by Pulse Oximetry: 99 - Blood Pressure Right Arm Blood Pressure: 132/80 Blood Pressure Mean: 97 Blood Pressure Source: Automatic Cuff Medical Screen Scoring (Pre) - Cervical Exam Dilation: 0 cm = 0 Membranes: Intact - Uterine Contractions Frequency: N/A Duration: N/A Intensity: N/A - Maternal Vital Signs Maternal Temperature: N/A Signs of Preeclampsia: N/A Maternal Respirations: N/A - Pain Assessment Pain Location and Character: Back Pain Scale Used: Numeric (1 - 10) Pain Intensity: 4 Pain Management Goal: 4 Pain Description: *Acute Pain Duration Units: Hours Pain Behavior: Vocalization Pain Aggravating Factors: Breathing Non-Pharmacological Interventions: Position/Reposition, Relaxation Technique - Maternal Trauma Maternal Trauma: N/A - Assessment Baseline FHR: 150 Heart Rate - NICHD Category: Category I (Normal) = 0 NST: Reactive Position: N/A Station: N/A - Total Score Total Score (Pre): 0 - Level of Risk Level of Risk: Low (0-5) Physician Notification (Post) - Physician Notified Physician Notified Date: 08/31/17 Physician Notified Time: 18:18 Physician/Practitioner Notified:: Leena Spoke With: Leena New Order Received: Yes - Notification Comment Comment: pt to go to ER for further evaluation Disposition - Disposition OB Disposition: Transfer to other dept./facility Transferred to:: ER Discharge Date: 08/31/17 Discharge Time: 18:23 I agree with the RN Medical Screening Exam: Yes Risk & Benefit of care provided described in d/c instruction: Yes Diagnosis: SHORTNESS OF BREATH
== END 2017-08-31 18:34 | disposition home or self-care (01) ==
LOC: FBPOP 17:25
PROVIDERS: ATTEND Obstetrics & Gynecology
DX: O99.512 Diseases of the respiratory system complicating pregnancy, second trimester (principal); Z3A.28 28 weeks gestation of pregnancy
CPT/HCPCS: 59025; G0463; 99213

== ENCOUNTER 2017-08-31 18:37 | Emergency (ER) | payer OTHER ==
[2017-08-31 18:44] VITALS: BP 134/70; PULSE 88; TEMP 97.6
[2017-08-31 18:49] VITALS: RESP 22
--- NOTE | 2017-08-31 19:09 | ED ---
General Adult HPI - General Chief complaint: Shortness of Breath Stated complaint: SOB Time Seen by Provider: 08/31/17 18:55 Source: patient, RN notes reviewed Mode of arrival: wheelchair Limitations: no limitations - History of Present Illness Initial comments: This is a 42-year-old female who states she's 25 weeks who states she started developing left CVA area pain about 2 hours ago. She did have some sweating with it slight shortness of breath she thinks she may have pulled something. She currently denies any cough fevers chills nausea vomiting sweats phlegm production or other symptoms no dysuria no hematuria. She did come from labor and delivery where she was cleared with respect to the . - Related Data Home Medications Medication Instructions Recorded Confirmed Pnv No.95/Ferrous Fum/Folic AC 1 tab PO DAILY 08/31/17 08/31/17 [ Multivitamin Tablet] Allergies Allergy/AdvReac Type Severity Reaction Status Date / Time Penicillins Allergy Anaphylaxis Verified 08/31/17 18:58 Review of Systems ROS Statement: Those systems with pertinent positive or pertinent negative responses have been documented in the HPI. ROS Other: All systems not noted in ROS Statement are negative. Past Medical History Past Medical History: GERD/Reflux Additional Past Medical History / Comment(s): BACK PAIN, HIATAL HERNIA., History of Any Multi-Drug Resistant Organisms: None Reported Past Surgical History: Hernia Repair Additional Past Surgical History / Comment(s): EGD Past Anesthesia/Blood Transfusion Reactions: No Reported Reaction Additional Past Anesthesia/Blood Transfusion Reaction / Comment(s): FIRST ANESTHETIC Past Psychological History: Anxiety, Panic Disorder Smoking Status: Former smoker - Past Family History Mother Family Medical History: No Reported History General Exam - General Exam Comments Initial Comments: This is a well-developed well-nourished awake alert oriented x 3 female Limitations: no limitations General appearance: alert, in no apparent distress Head exam: Present: atraumatic, normocephalic, normal inspection Eye exam: Present: normal appearance, PERRL, EOMI. Absent: scleral icterus, conjunctival injection, periorbital swelling ENT exam: Present: normal exam, mucous membranes moist Neck exam: Present: normal inspection. Absent: tenderness, meningismus, lymphadenopathy Respiratory exam: Present: normal lung sounds bilaterally, chest wall tenderness (Left CVA area tenderness no step-off no crepitation no rash). Absent: respiratory distress, wheezes, rales, rhonchi, stridor Cardiovascular Exam: Present: regular rate, normal rhythm, normal heart sounds. Absent: systolic murmur, diastolic murmur, rubs, gallop, clicks GI/Abdominal exam: Present: soft, normal bowel sounds, other (Uterus is distended consistent with the stated gestational age). Absent: distended, tenderness, guarding, rebound, rigid Extremities exam: Present: normal inspection, full ROM, normal capillary refill. Absent: tenderness, pedal edema, joint swelling, calf tenderness Back exam: Present: normal inspection Neurological exam: Present: alert, oriented X3, CN II-XII intact Psychiatric exam: Present: normal affect, normal mood Skin exam: Present: warm, dry, intact, normal color. Absent: rash Course Vital Signs 08/31/17 08/31/17 18:42 18:45 Temperature 97.6 F Pulse Rate 88 Respiratory 20 22 Rate Blood Pressure 134/70 O2 Sat by Pulse 99 Oximetry - Reevaluation(s) Reevaluation #1: 08/31/17 19:25 The patient was offered pain medication but did decline she states she has Tylenol at home. Medical Decision Making - Medical Decision Making The patient was offered a chest x-ray did decline. UA is negative the patient will be discharged the presentation consistent with muscle spasm - Lab Data Lab Results 08/31/17 Range/Units 19:00 Urine Color Light Yellow Urine Appearance Clear (Clear) Urine pH 6.5 (5.0-8.0) Ur Specific [place] 1.007 (1.001-1.035) Urine Protein Negative (Negative) Urine Glucose (UA) Negative (Negative) Urine Ketones Negative (Negative) Urine Blood Negative (Negative) Urine Nitrite Negative (Negative) Urine Bilirubin Negative (Negative) Urine Urobilinogen <2.0 (<2.0) mg/dL Ur Leukocyte Esterase Negative (Negative) Disposition Clinical Impression: Muscle spasm of back, Intrauterine Disposition: HOME SELF-CARE Condition: Good Instructions: Muscle Spasm (ED) Additional Instructions: Tylenol for pain Referrals: None,Stated [Primary Care Provider] - 1-2 days
[2017-08-31 19:16] LABS: Appearance,Urine Clear (Clear); Bilirubin,Urine Negative (Negative); Blood,Urine Negative (Negative); Color,Urine Light Yellow; Glucose,Urine (UA) Negative (Negative); Ketones,Urine Negative (Negative); Leukocyte Esterase,Urine Negative (Negative); Nitrite,Urine Negative (Negative); PH, Urine 6.5 (5.0-8.0); Protein,Urine Negative (Negative); Specific Gravity,Urine 1.007 (1.001-1.035); Urobilinogen,Urine <2.0 mg/dL (<2.0)
== END 2017-08-31 19:30 | disposition home or self-care (01) ==
LOC: EC 18:37
DX: O99.89 Other specified diseases and conditions complicating pregnancy, childbirth and the puerperium (principal); M62.830 Muscle spasm of back; Z88.0 Allergy status to penicillin; Z87.891 Personal history of nicotine dependence; Z53.29 Procedure and treatment not carried out because of patient's decision for other reasons; Z3A.25 25 weeks gestation of pregnancy
CPT/HCPCS: 81003; 99284

== ENCOUNTER 2017-10-02 14:10 | Outpatient (CLI) | payer OTHER ==
--- NOTE | 2017-12-23 16:54 | P.MSEPDOC ---
Presenting Problems - Arrival Data Date of Arrival on Unit: 10/02/17 Time of Arrival on Unit: 14:00 Medical History - Information : 8 Para: 4 Term: 4 : 0 Abortions: Spontaneous or Elective: 4 Number of Living Children: 4 - Gestational Age Gestational Age by KESHAWN (wks/days): 32 Weeks and 6 Days I agree with the RN Medical Screening Exam: Yes Risk & Benefit of care provided described in d/c instruction: Yes Diagnosis: RELATED CONDITIONS, UNSPECIFIED, THIRD TRIMESTER
== END 2017-10-02 15:00 | disposition home or self-care (01) ==
LOC: FBPOP 14:10
PROVIDERS: ATTEND Obstetrics & Gynecology
DX: O26.893 Other specified pregnancy related conditions, third trimester (principal); Z3A.32 32 weeks gestation of pregnancy; R10.9 Unspecified abdominal pain; R07.9 Chest pain, unspecified
CPT/HCPCS: 59025; 93005

== ENCOUNTER 2017-10-02 15:02 | Emergency (ER) | payer OTHER ==
[2017-10-02 15:16] VITALS: RESP 18; TEMP 98.1
[2017-10-02 15:57] LABS: Basophils % (A) 0 %; Eosinophils # (A) 0.1 k/uL (0-0.7); Eosinophils % (A) 1 %; HCT 31.8 % (34.0-46.0); HGB 10.9 gm/dL (11.4-16.0); Lymphocytes # (A) 1.2 k/uL (1.0-4.8); Lymphocytes % (A) 12 %; MCHC 34.5 g/dL (31.0-37.0); Mean Platelet Volume 6.7; Monocytes # (A) 0.3 k/uL (0-1.0); Monocytes % (A) 3 %; Neutrophils % (A) 83 %; Platelet Count 262 k/uL (150-450); RBC 3.65 m/uL (3.80-5.40); RDW 13.3 % (11.5-15.5); WBC 9.6 k/uL (3.8-10.6)
--- NOTE | 2017-10-02 16:02 | ED ---
Dizziness HPI - General Chief Complaint: Dizziness Stated Complaint: Dizziness Time Seen by Provider: 10/02/17 15:23 Source: patient, RN notes reviewed Mode of arrival: EMS Limitations: no limitations - History of Present Illness Initial Comments: This is a 42-year-old female, currently 7-1/2 months , who presents to the emergency department chief complaint of dizziness. Patient states earlier today she began to feel dizzy. She states she lied down and then felt sick to her stomach. She called EMS. EMS transported patient to the hospital where she was cleared by labor and delivery. She was sent down to the emergency department for further evaluation of her dizziness. At this time, patient complains of dizziness, stating that it feels like the room is spinning and that she cannot focus on one thing. She also admits to associated nausea and chest pain. Patient does admit to a history of anxiety and panic attacks. She states that prior to being she took Ativan 2 mg 3 times a day and had daily panic attacks. Denies recent fevers or chills, abdominal pain, vomiting, diarrhea or constipation, numbness or tingling, headache or vision changes. - Related Data Home Medications Medication Instructions Recorded Confirmed Pnv No.95/Ferrous Fum/Folic AC 1 tab PO DAILY 08/31/17 10/02/17 [ Multivitamin Tablet] Allergies Allergy/AdvReac Type Severity Reaction Status Date / Time Penicillins Allergy Anaphylaxis Verified 10/02/17 15:08 Review of Systems ROS Statement: Those systems with pertinent positive or pertinent negative responses have been documented in the HPI. ROS Other: All systems not noted in ROS Statement are negative. Past Medical History Past Medical History: GERD/Reflux Additional Past Medical History / Comment(s): BACK PAIN, HIATAL HERNIA., History of Any Multi-Drug Resistant Organisms: None Reported Past Surgical History: Hernia Repair Additional Past Surgical History / Comment(s): EGD Past Anesthesia/Blood Transfusion Reactions: No Reported Reaction Additional Past Anesthesia/Blood Transfusion Reaction / Comment(s): FIRST ANESTHETIC Past Psychological History: Anxiety, Panic Disorder Smoking Status: Former smoker Past Alcohol Use History: None Reported Past Drug Use History: None Reported - Past Family History Mother Family Medical History: No Reported History General Exam - General Exam Comments Initial Comments: General: Awake and alert, well-developed; in no apparent distress. Lying comfortably and ED stretcher. HEENT: Head atraumatic, normocephalic. Pupils are equal, round and reactive to light. Extraocular movements intact. Oropharynx moist without erythema or exudate. Neck: Supple. Normal ROM. Cardiovascular: Regular rate and rhythm. No murmurs, rubs or gallops. Chest symmetrical. Respiratory: Lungs clear to auscultation bilaterally. No wheezes, rales or rhonchi. Normal respiratory effort with no use of accessory muscles. Musculoskeletal: Normal ROM, no tenderness, strength 5/5 bilateral upper and lower extremities. Skin: [place], warm and dry without rashes or lesions. Neurological: Alert and oriented x3. CN II-XII grossly intact. Speech is fluent and answers are appropriate. No focal neuro deficits. Psychiatric: Normal mood and affect. No overt signs of depression or anxiety noted. Limitations: no limitations Course Vital Signs 10/02/17 10/02/17 10/02/17 15:11 16:16 17:31 Temperature 98.1 F Pulse Rate 81 89 78 Respiratory 18 18 18 Rate Blood Pressure 115/76 117/79 108/55 O2 Sat by Pulse 98 98 100 Oximetry - Reevaluation(s) Reevaluation #1: At this time, lab findings were discussed with attending physician, Dr. Hunt. He did evaluate patient after noting 3+ ketones in her urine. Ordered a liter bolus of fluids and we will recheck urine after patient receives bolus. At this time, vital signs are stable. Patient has normal blood pressure and heart rate. 10/02/17 16:41 Reevaluation #2: Second UA has resulted at this time. It still reveals 3+ ketones. I discussed this with attending physician, Dr. Hunt. Recommended administering another liter of fluid. Patient has been tolerating oral fluids and just finished eating a cheeseburger. Vital signs remained stable. After this liter bolus, if patient continues to have stable vital signs and tolerate oral intake she will be discharged home. She does state that she has an appointment scheduled with her BODY WELDER tomorrow. 10/02/17 18:36 EKG Findings - EKG Comments: EKG Findings:: 14:22:40. Normal sinus rhythm. Ventricular rate 89 bpm, MI interval 170, QRS duration 92, QT/QTC 364/442. No evidence of ST segment elevation or depression. Medical Decision Making - Medical Decision Making This is a 42-year-old female, currently 7 1/2 months , who presents to the emergency department with chief complaint of dizziness. Patient was brought to the hospital via EMS. She was evaluated by labor and delivery and was cleared. Patient stated that she felt like the room was spinning and felt nauseous. Her symptoms have somewhat improved since presentation to the emergency department. She did receive 2 L of normal saline and has been tolerating oral intake. She ate a cheeseburger and a smoothie while in the emergency department. CBC and CMP were unremarkable. UA did reveal 3+ ketones so the first bolus of normal saline was administered. After bolus a UA was rechecked. This still revealed 3+ ketones. I spoke with attending physician, Dr. Hunt who also evaluated the patient. A second liter bolus was administered. Patient's vital signs have remained stable. Patient states that she does have an appointment scheduled tomorrow with her BODY WELDER. She is in no acute distress and will be discharged home at this time. She is in agreement voices understanding. All questions were answered. - Lab Data Result diagrams: 10/02/17 15:44 10/02/17 15:44 Lab Results 10/02/17 10/02/17 10/02/17 Range/Units 15:44 15:44 15:52 WBC 9.6 (3.8-10.6) k/uL RBC 3.65 L (3.80-5.40) m/uL Hgb 10.9 L (11.4-16.0) gm/dL Hct 31.8 L (34.0-46.0) % MCV 87.0 (80.0-100.0) fL MCH 30.0 (25.0-35.0) pg MCHC 34.5 (31.0-37.0) g/dL RDW 13.3 (11.5-15.5) % Plt Count 262 (150-450) k/uL Neutrophils % 83 % Lymphocytes % 12 % Monocytes % 3 % Eosinophils % 1 % Basophils % 0 % Neutrophils # 8.0 H (1.3-7.7) k/uL Lymphocytes # 1.2 (1.0-4.8) k/uL Monocytes # 0.3 (0-1.0) k/uL Eosinophils # 0.1 (0-0.7) k/uL Basophils # 0.0 (0-0.2) k/uL Sodium 138 (137-145) mmol/L Potassium 3.9 (3.5-5.1) mmol/L Chloride 108 H (98-107) mmol/L Carbon Dioxide 20 L (22-30) mmol/L Anion Gap 10 mmol/L BUN 6 L (7-17) mg/dL Creatinine 0.39 L (0.52-1.04) mg/dL Est GFR (CKD-EPI)AfAm >90 (>60 ml/min/1.73 sqM) Est GFR (CKD-EPI)NonAf >90 (>60 ml/min/1.73 sqM) Glucose 84 (74-99) mg/dL Calcium 9.1 (8.4-10.2) mg/dL Total Bilirubin 0.3 (0.2-1.3) mg/dL AST 20 (14-36) U/L ALT 13 (9-52) U/L Alkaline Phosphatase 72 (38-126) U/L Total Protein 5.9 L (6.3-8.2) g/dL Albumin 3.3 L (3.5-5.0) g/dL Urine Color Light Yellow Urine Appearance Clear (Clear) Urine pH 7.0 (5.0-8.0) Ur Specific [place] 1.008 (1.001-1.035) Urine Protein Negative (Negative) Urine Glucose (UA) Negative (Negative) Urine Ketones 3+ H (Negative) Urine Blood Negative (Negative) Urine Nitrite Negative (Negative) Urine Bilirubin Negative (Negative) Urine Urobilinogen <2.0 (<2.0) mg/dL Ur Leukocyte Esterase Negative (Negative) 10/02/17 Range/Units 17:52 WBC (3.8-10.6) k/uL RBC (3.80-5.40) m/uL Hgb (11.4-16.0) gm/dL Hct (34.0-46.0) % MCV (80.0-100.0) fL MCH (25.0-35.0) pg MCHC (31.0-37.0) g/dL RDW (11.5-15.5) % Plt Count (150-450) k/uL Neutrophils % % Lymphocytes % % Monocytes % % Eosinophils % % Basophils % % Neutrophils # (1.3-7.7) k/uL Lymphocytes # (1.0-4.8) k/uL Monocytes # (0-1.0) k/uL Eosinophils # (0-0.7) k/uL Basophils # (0-0.2) k/uL Sodium (137-145) mmol/L Potassium (3.5-5.1) mmol/L Chloride (98-107) mmol/L Carbon Dioxide (22-30) mmol/L Anion Gap mmol/L BUN (7-17) mg/dL Creatinine (0.52-1.04) mg/dL Est GFR (CKD-EPI)AfAm (>60 ml/min/1.73 sqM) Est GFR (CKD-EPI)NonAf (>60 ml/min/1.73 sqM) Glucose (74-99) mg/dL Calcium (8.4-10.2) mg/dL Total Bilirubin (0.2-1.3) mg/dL AST (14-36) U/L ALT (9-52) U/L Alkaline Phosphatase (38-126) U/L Total Protein (6.3-8.2) g/dL Albumin (3.5-5.0) g/dL Urine Color Light Yellow Urine Appearance Clear (Clear) Urine pH 6.5 (5.0-8.0) Ur Specific [place] 1.011 (1.001-1.035) Urine Protein Negative (Negative) Urine Glucose (UA) Negative (Negative) Urine Ketones 3+ H (Negative) Urine Blood Negative (Negative) Urine Nitrite Negative (Negative) Urine Bilirubin Negative (Negative) Urine Urobilinogen <2.0 (<2.0) mg/dL Ur Leukocyte Esterase Negative (Negative) Disposition Clinical Impression: Vertigo, Urine ketones Disposition: HOME SELF-CARE Condition: Good Instructions: Blood and Urine Ketones (ED), Vertigo (ED) Additional Instructions: Please follow up with your BODY WELDER tomorrow as scheduled. Please follow up with primary care provider within 1-2 days. Return to emergency department if symptoms should worsen or any concerns arise. Is patient prescribed a controlled substance at d/c from ED?: No Referrals: None,Stated [Primary Care Provider] - 1-2 days Time of Disposition: 19:21
[2017-10-02 16:04] LABS: Appearance,Urine Clear (Clear); Bilirubin,Urine Negative (Negative); Blood,Urine Negative (Negative); Color,Urine Light Yellow; Glucose,Urine (UA) Negative (Negative); Ketones,Urine 3+ (Negative); Leukocyte Esterase,Urine Negative (Negative); Nitrite,Urine Negative (Negative); Protein,Urine Negative (Negative); Specific Gravity,Urine 1.008 (1.001-1.035); Urobilinogen,Urine <2.0 mg/dL (<2.0)
[2017-10-02 16:07] LABS: ALT 13 U/L (9-52); AST 20 U/L (14-36); Albumin 3.3 g/dL (3.5-5.0); Alkaline Phosphatase 72 U/L (38-126); Anion Gap 10 mmol/L; Blood Urea Nitrogen 6 mg/dL (7-17); Calcium 9.1 mg/dL (8.4-10.2); Carbon Dioxide 20 mmol/L (22-30); Chloride 108 mmol/L (98-107); Glucose 84 mg/dL (74-99); Potassium 3.9 mmol/L (3.5-5.1); Sodium 138 mmol/L (137-145); Total Bilirubin 0.3 mg/dL (0.2-1.3); Total Protein 5.9 g/dL (6.3-8.2)
[2017-10-02] MEDS ORDERED: SODIUM CHLORIDE 0.9% 1,000 ML IV ONE (16:38)
[2017-10-02] MEDS ORDERED: FAMOTIDINE 20 MG TAB PO STA (18:01)
[2017-10-02 18:15] LABS: Appearance,Urine Clear (Clear); Bilirubin,Urine Negative (Negative); Blood,Urine Negative (Negative); Color,Urine Light Yellow; Glucose,Urine (UA) Negative (Negative); Ketones,Urine 3+ (Negative); Leukocyte Esterase,Urine Negative (Negative); Nitrite,Urine Negative (Negative); PH, Urine 6.5 (5.0-8.0); Protein,Urine Negative (Negative); Specific Gravity,Urine 1.011 (1.001-1.035); Urobilinogen,Urine <2.0 mg/dL (<2.0)
[2017-10-02] MEDS ORDERED: SODIUM CHLORIDE 0.9% 1,000 ML IV STA (18:33)
[2017-10-02 19:09] VITALS: BP 102/51; PULSE 80
== END 2017-10-02 19:37 | disposition home or self-care (01) ==
LOC: EC 15:02
DX: O99.89 Other specified diseases and conditions complicating pregnancy, childbirth and the puerperium (principal); R42 Dizziness and giddiness; R82.4 Acetonuria; R07.9 Chest pain, unspecified; Z87.891 Personal history of nicotine dependence; Z88.0 Allergy status to penicillin; Z3A.00 Weeks of gestation of pregnancy not specified
CPT/HCPCS: 36415; 80053; 81003; 85025; 87086; 93005; 96360; 96361; 99284

== ENCOUNTER 2017-10-10 12:05 | Outpatient (CLI) | payer OTHER ==
[2017-10-10 12:43] LABS: Appearance,Urine Clear (Clear); Bilirubin,Urine Negative (Negative); Blood,Urine Negative (Negative); Color,Urine Light Yellow; Glucose,Urine (UA) Negative (Negative); Ketones,Urine Negative (Negative); Leukocyte Esterase,Urine Negative (Negative); Nitrite,Urine Negative (Negative); PH, Urine 6.5 (5.0-8.0); Protein,Urine Negative (Negative); Specific Gravity,Urine 1.004 (1.001-1.035); Urobilinogen,Urine <2.0 mg/dL (<2.0)
[2017-10-10 12:47] LABS: Creatinine,Urine Random 24.1 mg/dL
[2017-10-10 13:10] LABS: Basophils % (A) 0 %; Eosinophils # (A) 0.2 k/uL (0-0.7); Eosinophils % (A) 2 %; HCT 34.7 % (34.0-46.0); HGB 11.9 gm/dL (11.4-16.0); Lymphocytes % (A) 23 %; MCH 30.2 pg (25.0-35.0); MCHC 34.4 g/dL (31.0-37.0); MCV 87.7 fL (80.0-100.0); Mean Platelet Volume 6.7; Monocytes # (A) 0.3 k/uL (0-1.0); Monocytes % (A) 4 %; Neutrophils # (A) 5.9 k/uL (1.3-7.7); Neutrophils % (A) 69 %; Platelet Count 299 k/uL (150-450); RBC 3.96 m/uL (3.80-5.40); RDW 13.6 % (11.5-15.5); WBC 8.6 k/uL (3.8-10.6)
[2017-10-10 13:13] LABS: Glucose,Whole Blood 103 mg/dL (75-99)
[2017-10-10 13:18] LABS: ALT 25 U/L (9-52); AST 13 U/L (14-36); Blood Urea Nitrogen 8 mg/dL (7-17); LDH 341 U/L (313-618); Uric Acid 3.4 mg/dL (3.7-7.4)
[2017-10-10] MEDS ORDERED: ASPIRIN 81 MG PO STA (14:00)
[2017-10-10] MEDS ORDERED: LACTATED RINGERS 1,000 ML IV SCH (14:15)
[2017-10-10] MEDS ORDERED: MAGNESIUM SULFATE-WATER PMX 4 GM in WATER FOR INJECTION 50 50ML.BAG IVPB ONE (14:16)
[2017-10-10 14:23] LABS: Troponin I <0.012 ng/mL (0.000-0.034)
[2017-10-10 14:24] LABS: Creatine Kinase MB 0.7 ng/mL (0.0-2.4)
[2017-10-10] MEDS ORDERED: MAGNESIUM SULFATE-WATER PMX 20 GM in WATER FOR INJECTION 1 500ML.BAG IV SCH (14:30)
[2017-10-10] MEDS ORDERED: BETAMET ACET-BETAMETH SOD PHOS 6 MG/ML VIAL IM SCH (14:30)
[2017-10-10] MEDS ORDERED: CALCIUM CHLORIDE 500 MG in SODIUM CHLORIDE 0.9% 50 ML IVPB ONE (15:00)
[2017-10-10] MEDS ORDERED: LABETALOL 5 MG/ML VIAL MDV IVP PRN ×3 (16:32)
[2017-10-10] MEDS ORDERED: hydrALAZINE HCL 20 MG/ML 1 ML VIAL IVP PRN (16:32)
--- NOTE | 2017-10-10 16:41 | P.TRANS ---
Providers Attending physician: Gordon Steven Primary care physician: Stated None Hospital Course: Biju is a 42-year-old at 31 weeks gestation who arrived to my office today with mild elevation of blood pressure. She was sent to labor and delivery where her blood pressures began to spike. Her highest blood pressure is 170/110. She's had multiple blood pressures in the 150s to 160s over 90s since that time and she would've been transferred earlier however she had onset of acute chest pain and therefore we need to rule out primary cardiac disease. EKG and labs have been normal and there is no further immediate concern for her having a heart attack. She had a similar episode like this for which she was seen in the emergency room approximately 1 week ago and she did have significant elevation of her blood pressure initially there but it stabilized once her chest pain dissipated. She reports that she had some cramping after she began being seen in labor and delivery as well and a fibronectin was ordered. However, her cervix was closed and thick. She has a long history of anxiety and she normally takes Ativan but due to risk mouth Maisch and IUGR this was stopped. She did see maternal medicine about her advanced maternal age and risks for anxiety, it may be that we need to find some other alternative that is safer her if she does not have preeclampsia to try and help control her anxiety moving forward. However, with her aunt and maternal age and elevated blood pressures she is at significant risk for preeclampsia and will therefore transfer her to [facility] to have continuation of care. On physical exam her vital signs are as above and afebrile. Heart is regular, lungs are clear, extremities without pain. She is ox 8100% on room air. heart tones in the 130s 140s and reactive. There've been no contractions noted. Her labs for preeclampsia have basically been normal although it appears the protein creatinine ratio was elevated. She is noted to have 3+ deep tendon reflexes bilaterally. Assessment intrauterine Brixey 31 weeks with elevations in blood pressure rule out preeclampsia. Plan Stover cath was placed and she received 4 g bolus of mag sulfate 2 g per hour. She also received a dose of steroids for lung maturity and will be transferred to [facility] for further management. Patient Condition at Discharge: Stable Plan - Transfer Summary Transfer Medications: Active Medications Generic Name Dose Route Start Last Admin Trade Name Freq PRN Reason Stop Dose Admin Betamethasone Acet/Betameth SodPhos 12 mg 10/10/17 14:30 10/10/17 14:40 Celestone Soluspan IM 10/11/17 14:31 12 mg Q24H GLENNA Administration Hydralazine HCl 10 mg 10/10/17 16:32 Apresoline IVP 10/12/17 16:32 ONCE PRN Hypertension Lactated Ringer's 1,000 mls @ 20 mls/hr 10/10/17 14:15 10/10/17 14:54 Lactated Ringers IV 20 mls/hr .Q24H GLENNA Administration Magnesium Sulfate 20 gm/ IV 500 mls @ 50 mls/hr 10/10/17 14:30 10/10/17 15:38 Solution IV 2 gm/hr .Q10H GLENNA 50 mls/hr 2 GM/HR Administration Labetalol HCl 80 mg 10/10/17 16:32 Trandate IVP 10/12/17 16:32 ONCE PRN Hypertension Labetalol HCl 20 mg 10/10/17 16:32 Trandate IVP 10/12/17 16:32 ONCE PRN Hypertension Labetalol HCl 40 mg 10/10/17 16:32 Trandate IVP 10/12/17 16:32 ONCE PRN Hypertension
[2017-10-16 22:38] LABS: Metanephrine, Free 75 pg/mL (< OR = 57); Normetanephrine, Free 134 pg/mL (< OR = 148); Total, Free (MN + NMN) 209 pg/mL (< OR = 205)
== END 2017-10-10 17:45 ==
LOC: FBPOP 12:05
PROVIDERS: ATTEND Obstetrics & Gynecology
DX: O99.413 Diseases of the circulatory system complicating pregnancy, third trimester (principal); R03.0 Elevated blood-pressure reading, without diagnosis of hypertension; O99.89 Other specified diseases and conditions complicating pregnancy, childbirth and the puerperium; R07.9 Chest pain, unspecified; O99.343 Other mental disorders complicating pregnancy, third trimester; F41.9 Anxiety disorder, unspecified; Z3A.32 32 weeks gestation of pregnancy; Z79.899 Other long term (current) drug therapy
CPT/HCPCS: 59025; 96361; 96365; 96366; 96367; 96375; 96372; 93005; 83835; 82570; 84156; 82565; 82553; 83615; 84450; 84460; 84520; 84550; 84484; 85025; 81003; J0702; J3475 ×2

== ENCOUNTER 2017-10-21 18:40 | Outpatient (CLI) | payer OTHER ==
[2017-10-21 18:58] LABS: Appearance,Urine Cloudy (Clear); Bacteria,Urine Rare /hpf; Bilirubin,Urine Negative (Negative); Blood,Urine Negative (Negative); Color,Urine Light Yellow; Glucose,Urine (UA) Negative (Negative); Ketones,Urine Negative (Negative); Leukocyte Esterase,Urine Negative (Negative); Mucus,Urine Rare /hpf; Nitrite,Urine Negative (Negative); Protein,Urine Negative (Negative); RBC,Urine <1 /hpf (0-5); Squamous Epithelial Cell,Urine 12 /hpf (0-4); Urobilinogen,Urine <2.0 mg/dL (<2.0); WBC,Urine 3 /hpf (0-5)
[2017-10-21 19:36] VITALS: BP 134/81; PULSE 95; RESP 18; TEMP 97.1
--- NOTE | 2017-10-21 20:13 | P.MSEPDOC ---
Presenting Problems - Arrival Data Date of Arrival on Unit: 10/21/17 Time of Arrival on Unit: 18:40 Mode of Transport: Ambulatory - Complaint OB-Reason for Admission/Chief Complaint: Elevated Blood Pressure Comment: Dr. Steven wanted pt to come in and have bp checked Medical History - Information : 8 Para: 4 Term: 4 : 0 Abortions: Spontaneous or Elective: 0 Number of Living Children: 4 - Gestational Age Gestational Age by KESHAWN (wks/days): 32 Weeks and 5 Days - History Complications: Preeclampsia Review of Systems - Review of Systems Constitutional: No problems Breast: No problems ENT: No problems Cardiovascular: No problems Respiratory: No problems Gastrointestinal: No problems Genitourinary: No problems Musculoskeletal: No problems Neurological: No problems Skin: No problems Vital Signs - Temperature Temperature: 97.1 F Temperature Source: Temporal Artery Scan - Pulse Right Brachial Pulse Rate: 95 Pulse Assessment Method: Automatic Cuff - Respirations Respiratory Rate: 18 Oxygen Delivery Method: Room Air - Blood Pressure Right Arm Blood Pressure: 134/81 Blood Pressure Mean: 98 Blood Pressure Source: Automatic Cuff Medical Screen Scoring (Pre) - Cervical Exam Dilation: Exam Deferred Effacement: Exam Deferred Membranes: Intact - Uterine Contractions Frequency: N/A Duration: N/A Intensity: N/A - Maternal Vital Signs Maternal Temperature: N/A Maternal Blood Pressure: N/A Signs of Preeclampsia: N/A Maternal Respirations: N/A - Pain Assessment Pain Scale Used: Numeric (1 - 10) Pain Intensity: 0 - Assessment Baseline FHR: 135 Heart Rate - NICHD Category: Category I (Normal) = 0 NST: Reactive Position: N/A Station: N/A - Total Score Total Score (Pre): 0 - Level of Risk Level of Risk: N/A Physician Notification (Pre) - Physician Notified Physician Notified Date: 10/21/17 Physician Notified Time: 19:15 Physician/Practitioner Notifed:: Dr. Duke Spoke With: Dr. Duke New Order Received: Yes - Notification Comment Comment: discharge pt home, follow up in office at next scheduled appt, Disposition - Disposition OB Disposition: Triage, Discharge to home, Written follow up instructions reviewed Discharge Date: 10/21/17 Discharge Time: 19:19 I agree with the RN Medical Screening Exam: Yes Risk & Benefit of care provided described in d/c instruction: Yes Diagnosis: GESTATIONAL HTN W/O SIGNIFICANT PROTEINURIA, THIRD TRIMESTER
== END 2017-10-21 19:19 | disposition home or self-care (01) ==
LOC: FBPOP 18:40
PROVIDERS: ATTEND Obstetrics & Gynecology
DX: O13.3 Gestational [pregnancy-induced] hypertension without significant proteinuria, third trimester (principal); Z3A.32 32 weeks gestation of pregnancy
CPT/HCPCS: 59025; 81001; G0463; 99215

== ENCOUNTER 2017-11-03 18:43 | Outpatient (CLI) | payer OTHER ==
[2017-11-03 19:13] VITALS: BP 133/78; PULSE 92; RESP 18; TEMP 98.5
--- NOTE | 2017-11-04 06:35 | P.MSEPDOC ---
Presenting Problems - Arrival Data Date of Arrival on Unit: 11/03/17 Time of Arrival on Unit: 18:43 Mode of Transport: Ambulatory - Complaint OB-Reason for Admission/Chief Complaint: Possible Onset of Labor Medical History - Information : 8 Para: 4 Term: 4 : 0 Abortions: Spontaneous or Elective: 4 Number of Living Children: 4 - Gestational Age Gestational Age by KESHAWN (wks/days): 34 Weeks and 4 Days - History Comment: Induced Hypertension Review of Systems - Review of Systems Constitutional: No problems Breast: No problems ENT: No problems Cardiovascular: No problems Respiratory: No problems Gastrointestinal: No problems Genitourinary: No problems Musculoskeletal: No problems Neurological: No problems Skin: No problems Vital Signs - Temperature Temperature: 98.5 F Temperature Source: Oral - Pulse Pulse Oximetery Pulse Rate: 92 Pulse Assessment Method: Pulse Oximetry - Respirations Respiratory Rate: 18 O2 Sat by Pulse Oximetry: 98 - Blood Pressure Right Arm Sitting Blood Pressure: 133/78 Blood Pressure Mean: 96 Blood Pressure Source: Automatic Cuff Medical Screen Scoring (Pre) - Cervical Exam Dilation: 0 cm = 0 Membranes: Intact - Uterine Contractions Frequency: N/A Duration: N/A Intensity: N/A - Maternal Vital Signs Maternal Temperature: N/A Maternal Blood Pressure: N/A Signs of Preeclampsia: N/A Maternal Respirations: N/A - Pain Assessment Pain Location and Character: Abdomen Pain Scale Used: Numeric (1 - 10) Pain Intensity: 1 Pain Management Goal: 0 Pain Description: *Acute, Cramping Pain Radiation Location: no Pain Frequency: Intermittent Pain Duration: 1 Pain Duration Units: Minutes Pain Behavior: None Exhibited Pain Aggravating Factors: Activity Non-Pharmacological Interventions: Darkened Room, Distraction, Emotional/ Spiritual Support, Environmental Control, Reduce Environmental Stimuli - Maternal Trauma Maternal Trauma: N/A - Assessment Baseline FHR: 130 Heart Rate - NICHD Category: Category I (Normal) = 0 NST: Reactive Position: N/A Station: N/A - Total Score Total Score (Pre): 0 - Level of Risk Level of Risk: Low (0-5) Physician Notification (Pre) - Physician Notified Physician Notified Date: 11/03/17 Physician Notified Time: 19:19 Physician/Practitioner Notifed:: Dr. Deleon Spoke With: Dr. Deleon New Order Received: Yes - Notification Comment Comment: Dr. Deleon given report on pt in triage. pt c/o. pt vitals wnl. Reactive nst. vag exam of closed/thick/high. Orders recieved to d/c pt to home. Disposition - Disposition OB Disposition: Discharge to home Discharge Date: 11/03/17 Discharge Time: 19:26 I agree with the RN Medical Screening Exam: Yes Risk & Benefit of care provided described in d/c instruction: Yes Diagnosis: FALSE LABOR BEFORE 37 COMPLETED WEEKS OF GEST, THIRD TRI
== END 2017-11-03 19:26 | disposition home or self-care (01) ==
LOC: FBPOP 18:43
PROVIDERS: ATTEND Obstetrics & Gynecology
DX: O47.03 False labor before 37 completed weeks of gestation, third trimester (principal); Z3A.34 34 weeks gestation of pregnancy
CPT/HCPCS: 59025; G0463; 99213

== ENCOUNTER 2017-11-07 11:48 | Outpatient (CLI) | payer OTHER ==
[2017-11-07 12:44] LABS: Appearance,Urine Cloudy (Clear); Bacteria,Urine Rare /hpf; Bilirubin,Urine Negative (Negative); Blood,Urine Negative (Negative); Color,Urine Light Yellow; Glucose,Urine (UA) Negative (Negative); Ketones,Urine Negative (Negative); Leukocyte Esterase,Urine Small (Negative); Nitrite,Urine Negative (Negative); PH, Urine 7.5 (5.0-8.0); Protein,Urine Negative (Negative); RBC,Urine <1 /hpf (0-5); Specific Gravity,Urine 1.009 (1.001-1.035); Squamous Epithelial Cell,Urine 17 /hpf (0-4); Urobilinogen,Urine <2.0 mg/dL (<2.0); WBC,Urine 5 /hpf (0-5)
[2017-11-07 12:51] LABS: Basophils % (A) 0 %; Eosinophils # (A) 0.1 k/uL (0-0.7); Eosinophils % (A) 1 %; HCT 33.3 % (34.0-46.0); HGB 11.4 gm/dL (11.4-16.0); Lymphocytes # (A) 1.5 k/uL (1.0-4.8); Lymphocytes % (A) 19 %; MCH 30.6 pg (25.0-35.0); MCHC 34.4 g/dL (31.0-37.0); Mean Platelet Volume 7.1; Monocytes # (A) 0.2 k/uL (0-1.0); Monocytes % (A) 3 %; Neutrophils # (A) 5.9 k/uL (1.3-7.7); Neutrophils % (A) 75 %; Platelet Count 270 k/uL (150-450); RBC 3.74 m/uL (3.80-5.40); RDW 13.8 % (11.5-15.5); WBC 7.8 k/uL (3.8-10.6)
[2017-11-07 13:05] VITALS: BP 146/74; PULSE 86; RESP 18; TEMP 98.6
[2017-11-07 13:07] LABS: ALT 23 U/L (9-52); AST 16 U/L (14-36); Blood Urea Nitrogen 7 mg/dL (7-17); LDH 288 U/L (313-618); Uric Acid 4.4 mg/dL (3.7-7.4)
--- NOTE | 2017-11-07 15:03 | US ---
EXAMINATION TYPE: US OB BPP wo non-stress DATE OF EXAM: 11/07/2017 COMPARISON: NONE CLINICAL HISTORY: non reactive nst. EXAM PERFORMED: Transabdominal (TA) BPP PARAMETERS: PRESENTATION: BREECH LIE: Transverse with head maternal Right?? HEART RATE: 165 bpm RHYTHM: Normal OWEN: 9.6 DIAPHRAGM IMAGED: BPP SCORIN. Breathin (1 episode of breathing of 30 second duration in 30 minutes of scanning time) 2. Movement: 2 (at least 3 discrete body movements in 30 minutes) 3. Tone: 2 (1 episode of active flexion/extension of limb) 4. OWEN: 2 (OWEN index > 5cm) TOTAL SCORE: 8 / 8
--- NOTE | 2017-11-11 08:02 | P.MSEPDOC ---
Presenting Problems - Arrival Data Date of Arrival on Unit: 11/07/17 Time of Arrival on Unit: 11:48 Mode of Transport: Portable - Complaint OB-Reason for Admission/Chief Complaint: Observation/Evaluation Comment: sent from office with PIH orders Medical History - Information : 8 Para: 4 Term: 4 : 0 Abortions: Spontaneous or Elective: 4 Number of Living Children: 4 - Gestational Age Gestational Age by KESHAWN (wks/days): 35 Weeks and 1 Days Review of Systems - Review of Systems Constitutional: No problems Breast: No problems ENT: No problems Cardiovascular: No problems Respiratory: No problems Gastrointestinal: No problems Genitourinary: No problems Musculoskeletal: No problems Neurological: No problems Skin: No problems Vital Signs - Temperature Temperature: 98.6 F Temperature Source: Temporal Artery Scan - Pulse Right Sitting Brachial Pulse Rate: 86 Pulse Assessment Method: Automatic Cuff - Respirations Respiratory Rate: 18 Oxygen Delivery Method: Room Air O2 Sat by Pulse Oximetry: 99 - Blood Pressure Right Arm Sitting Blood Pressure: 146/74 Blood Pressure Mean: 98 Blood Pressure Source: Automatic Cuff Medical Screen Scoring (Pre) - Cervical Exam Dilation: Exam Deferred - Uterine Contractions Frequency: N/A Duration: N/A - Maternal Vital Signs Maternal Temperature: N/A Maternal Blood Pressure: N/A Signs of Preeclampsia: N/A Maternal Respirations: N/A - Pain Assessment Pain Scale Used: Numeric (1 - 10) Pain Intensity: 0 - Total Score Total Score (Pre): 0 Physician Notification (Pre) - Notification Comment Comment: dr radford sent pt from office with lab orders Disposition - Disposition Discharge Date: 11/07/17 Discharge Time: 15:00 I agree with the RN Medical Screening Exam: Yes Risk & Benefit of care provided described in d/c instruction: Yes Diagnosis: GESTATIONAL HTN W/O SIGNIFICANT PROTEINURIA, THIRD TRIMESTER
[2017-11-12 08:16] LABS: Metanephrines 24 Hour,Urine 139 ug/day (52-341); Normetanephrine 24 Hour,Urine 559 ug/day (88-444); Total Metanephrines 24 Hour,Ur 698 ug/day (140-785)
== END 2017-11-07 15:00 | disposition home or self-care (01) ==
LOC: FBPOP 11:48
PROVIDERS: ATTEND Obstetrics & Gynecology
DX: O13.3 Gestational [pregnancy-induced] hypertension without significant proteinuria, third trimester (principal); Z3A.35 35 weeks gestation of pregnancy
CPT/HCPCS: 59025; 76819; 81001; 82565; 82570; 83615; 83835; 84450; 84460; 84520; 84550; 85025; 86316

== ENCOUNTER 2017-11-11 07:35 | Outpatient (CLI) | payer OTHER ==
[2017-11-11 08:00] VITALS: RESP 16; TEMP 97.7
[2017-11-11 08:26] LABS: Amorphous Sediment,Urine Rare /hpf; Appearance,Urine Cloudy (Clear); Bacteria,Urine Rare /hpf; Bilirubin,Urine Negative (Negative); Blood,Urine Negative (Negative); Color,Urine Light Yellow; Glucose,Urine (UA) Negative (Negative); Ketones,Urine Negative (Negative); Leukocyte Esterase,Urine Negative (Negative); Mucus,Urine Rare /hpf; Nitrite,Urine Negative (Negative); PH, Urine 6.5 (5.0-8.0); Protein,Urine Negative (Negative); RBC,Urine 1 /hpf (0-5); Specific Gravity,Urine 1.006 (1.001-1.035); Squamous Epithelial Cell,Urine 5 /hpf (0-4); Urobilinogen,Urine <2.0 mg/dL (<2.0); WBC,Urine 1 /hpf (0-5)
[2017-11-11 08:44] VITALS: BP 119/77; PULSE 74
--- NOTE | 2017-11-11 16:46 | P.MSEPDOC ---
Presenting Problems - Arrival Data Date of Arrival on Unit: 11/11/17 Time of Arrival on Unit: 07:40 Mode of Transport: Wheelchair - Complaint OB-Reason for Admission/Chief Complaint: Other Comment: pt arrived c/o her B/P being elevated when she took it this morning so pt took her labatol and ativen Medical History - Information : 8 Para: 4 Term: 4 : 0 Abortions: Spontaneous or Elective: 4 Number of Living Children: 4 - Gestational Age Gestational Age by KESHAWN (wks/days): 34 Weeks and 2 Days - History Complications: Chronic HTN Review of Systems - Review of Systems Constitutional: No problems Breast: No problems ENT: No problems Cardiovascular: No problems Respiratory: No problems Gastrointestinal: No problems Genitourinary: No problems Musculoskeletal: No problems Neurological: No problems Skin: No problems Vital Signs - Temperature Temperature: 97.7 F Temperature Source: Oral - Pulse Right Brachial Pulse Rate: 74 Pulse Assessment Method: Automatic Cuff - Respirations Respiratory Rate: 16 Oxygen Delivery Method: Room Air - Blood Pressure Right Arm Blood Pressure: 119/77 Blood Pressure Mean: 91 Blood Pressure Source: Automatic Cuff Medical Screen Scoring (Post) - Cervical Exam Dilation: Exam Deferred Effacement: Exam Deferred Membranes: Intact - Uterine Contractions Frequency: N/A Duration: N/A Intensity: N/A - Maternal Vital Signs Maternal Temperature: N/A Maternal Blood Pressure: N/A Signs of Preeclampsia: Nausea/Vomiting = 1 Maternal Respirations: N/A - Pain Assessment Pain Location and Character: Back Pain Scale Used: Numeric (1 - 10) Pain Intensity: 4 Pain Management Goal: 2 Pain Behavior: Vocalization - Maternal Trauma Maternal Trauma: N/A - Assessment Heart Rate: 130 Heart Rate - NICHD Category: Category I (Normal) = 0 NST: Reactive Position: N/A Station: N/A - Total Score Total Score (Post): 1 - Post Treatment Level of Risk Post Treatment Level of Risk: Low (0-5) Physician Notification (Post) - Physician Notified Physician Notified Date: 11/11/17 Physician Notified Time: 08:20 Spoke With: DR TRUJILLO New Order Received: Yes - Notification Comment Comment: AFTER NST MAY DISCHARGE TO HOME Disposition - Disposition OB Disposition: Discharge to home Discharge Date: 06/12/18 Discharge Time: 08:35 I agree with the RN Medical Screening Exam: Yes Risk & Benefit of care provided described in d/c instruction: Yes Diagnosis: GESTATIONAL HTN W/O SIGNIFICANT PROTEINURIA, THIRD TRIMESTER
== END 2017-11-11 08:35 | disposition home or self-care (01) ==
LOC: FBPOP 07:35
PROVIDERS: ATTEND Obstetrics & Gynecology
DX: O13.3 Gestational [pregnancy-induced] hypertension without significant proteinuria, third trimester (principal); Z3A.34 34 weeks gestation of pregnancy
CPT/HCPCS: 59025; 81001; G0463; 99213

== ENCOUNTER 2017-11-20 16:19 | Inpatient (IN) | payer OTHER ==
[2017-11-20] MEDS ORDERED: DINOPROSTONE 10 MG INSERT.ER VAGINAL ONE (16:39)
[2017-11-20] MEDS ORDERED: LORazepam 1 MG TAB PO PRN (17:22)
[2017-11-20 17:44] VITALS: BMI 31.9
[2017-11-20] MEDS ORDERED: BUTORPHANOL 1 MG/ML 1 ML VIAL IV PRN (21:21)
[2017-11-21] MEDS ORDERED: LABETALOL 100 MG TAB PO ONE (03:00)
[2017-11-21] MEDS ORDERED: OXYTOCIN 10 UNIT/ML 1 ML VIAL IM PRN (05:19)
[2017-11-21] MEDS ORDERED: TERBUTALINE 1 MG/ML VIAL SQ PRN (05:19)
[2017-11-21] MEDS ORDERED: LIDOCAINE 1% (PF) 10 MG/ML (30 ML SDV) SQ PRN (05:19)
[2017-11-21] MEDS ORDERED: CARBOPROST TROMETHAMINE 250 MCG/ML 1 ML AMP IM PRN (05:19)
[2017-11-21] MEDS ORDERED: METHYLERGONOVINE 0.2 MG/ML 1 ML AMP IM PRN (05:19)
[2017-11-21] MEDS ORDERED: OXYTOCIN 20 UNITS/1000 ML NS 1,000 ML IV SCH (05:30)
[2017-11-21] MEDS: LACTATED RINGERS 1,000 ML IV SCH ×3 (06:08→15:13)
[2017-11-21 06:31] LABS: Basophils % (A) 1 %; Eosinophils # (A) 0.1 k/uL (0-0.7); Eosinophils % (A) 1 %; HCT 34.1 % (34.0-46.0); HGB 11.8 gm/dL (11.4-16.0); Lymphocytes # (A) 1.7 k/uL (1.0-4.8); Lymphocytes % (A) 25 %; MCHC 34.6 g/dL (31.0-37.0); MCV 89.6 fL (80.0-100.0); Mean Platelet Volume 6.6; Monocytes # (A) 0.4 k/uL (0-1.0); Monocytes % (A) 5 %; Neutrophils # (A) 4.6 k/uL (1.3-7.7); Neutrophils % (A) 67 %; Platelet Count 253 k/uL (150-450); RDW 14.2 % (11.5-15.5); WBC 6.9 k/uL (3.8-10.6)
[2017-11-21] MEDS ORDERED: fentaNYL (PF) 50 MCG/ML 5 ML AMP ONE (14:32)
[2017-11-21] MEDS ORDERED: BUPIVACAINE (PF) 0.25% 30 ML VIAL ONE (14:32)
[2017-11-21] MEDS ORDERED: SODIUM CHLORIDE 0.9% 100 ML BAG ONE (14:32)
[2017-11-21] MEDS ORDERED: ROPIVACAINE 100 MG, fentaNYL (PF) 200 MCG in SODIUM CHLORIDE 0.9% 76 ML EPIDURAL ONE (14:46)
[2017-11-21] MEDS: LABETALOL 100 MG TAB PO SCH ×2 (15:41→21:35)
[2017-11-21] MEDS ORDERED: ZOLPIDEM 5 MG TAB PO PRN (20:07)
[2017-11-21] MEDS ORDERED: WITCH HAZEL 1 EACH MED..PAD TOPICAL PRN (20:07)
[2017-11-21] MEDS ORDERED: diphenhydrAMINE 50 MG/ML 1 ML VIAL IVP PRN ×2 (20:07)
[2017-11-21] MEDS ORDERED: ACETAMINOPHEN TAB 325 MG TAB PO PRN (20:07)
[2017-11-21] MEDS ORDERED: diphenhydrAMINE 50 MG CAP PO PRN (20:07)
[2017-11-21] MEDS ORDERED: LANOLIN CREAM 5 GM TUBE TOPICAL PRN (20:07)
[2017-11-21] MEDS ORDERED: BENZOCAINE/MENTHOL SPRAY 1 GM/SPRAY AEROSOL TOPICAL PRN (20:07)
[2017-11-21] MEDS ORDERED: HYDROCORTISONE 2.5% RECTAL CREAM 30 GM TUBE RECTAL PRN (20:07)
[2017-11-21] MEDS ORDERED: SIMETHICONE 80 MG CHEWABLE PO PRN (20:07)
[2017-11-21] MEDS ORDERED: diphenhydrAMINE 25 MG CAP PO PRN (20:07)
--- NOTE | 2017-11-21 20:11 | P.HPOB ---
History of Present Illness H&P Date: 11/21/17 Chief Complaint: Intrauterine at 37 weeks with hypertension Biju is a 42-year-old at 37 weeks gestation who was admitted last night for Cervidil ripening for nonfavorable cervix. Her course has been complicated by advanced maternal age and hypertension. She is had multiple episodes of significant hypertension and was placed on labetalol 100 mg twice daily. She furthermore has severe anxiety and despite warnings from maternal- medicine myself as needed to be on an anxiety lytic during the latter part of the for her to function. She understood risks including all risks to the baby that were discussed with her via maternal- medicine. She was also transferred to high risk earlier in the due to her hypertension and concerns over preeclampsia. At this time due to her complications with the and with maternal- medicine's recommendation we are admitting her and inducing her labor. heart tones show a category 1 tracing with heart rate in the 130s to 140 range. All questions are answered for her prior to Cervidil placement by Dr. Duke and risks including tachysystole and competitions a heart tracing were discussed with patient in detail and she was aware of increased risk for section due to same. Past Medical History Past Medical History: GERD/Reflux Additional Past Medical History / Comment(s): BACK PAIN, HIATAL HERNIA., anxiety & panic attacks History of Any Multi-Drug Resistant Organisms: None Reported Past Surgical History: Hernia Repair Additional Past Surgical History / Comment(s): EGD Past Anesthesia/Blood Transfusion Reactions: No Reported Reaction Additional Past Anesthesia/Blood Transfusion Reaction / Comment(s): FIRST ANESTHETIC Past Psychological History: Anxiety, Panic Disorder Additional Psychological History / Comment(s): currently taking ativan as needed Smoking Status: Never smoker Past Alcohol Use History: None Reported Additional Past Alcohol Use History / Comment(s): STARTED SMOKING AT AGE 31 SMOKES LESS THAN 1/2PPD. Past Drug Use History: None Reported - Past Family History Mother Family Medical History: No Reported History Medications and Allergies Home Medications Medication Instructions Recorded Confirmed Type Pnv No.95/Ferrous Fum/Folic AC 1 tab PO DAILY 08/31/17 11/20/17 History [ Multivitamin Tablet] Labetalol [Trandate] 100 mg PO BID 10/21/17 11/20/17 History Heartburn Med(Unknown Name) 1 tab PO BID 11/03/17 11/20/17 History LORazepam [Ativan] 1 mg PO BID 11/03/17 11/20/17 History Loratadine [Claritin] 10 mg PO HS 11/03/17 11/20/17 History Allergies Allergy/AdvReac Type Severity Reaction Status Date / Time Penicillins Allergy Anaphylaxis Verified 11/11/17 07:51 Exam Osteopathic Statement: *. No significant issues noted on an osteopathic structural exam other than those noted in the History and Physical/Consult. - Vital Signs Vital signs: Intake and Output 11/21/17 11/21/17 11/21/17 06:59 14:59 22:59 Intake Total 1600 Balance 1600 Intake: IV 1600 Lactated Ringers 1,000 ml 1600 @ 125 mls/hr IV .Q8H [facility] Rx#:[id number] Other: # Voids 1 - OBG Physical Exam Breast: both: normal (no masses) Abdomen: bowel sounds normal, no diffuse tenderness, no bruit present, no guarding noted, no hepatomegaly, no splenomegaly, no mass Vulva: both: normal Vagina: normal moisture, no discharge Cervix: no lesion, no discharge Uterus: normal size, normal contour Adnexa: both: normal Anus/Rectum: normal perianal skin, no rectal mass, no hemorrhoids, heme negative Results Result Diagrams: 11/21/17 06:10
--- NOTE | 2017-11-21 20:12 | P.PROBDLV ---
Vaginal Delivery Note - . Vaginal Delivery Note: Patient progressed to complete and pushing with spontaneous vaginal delivery of a viable female over an intact perineum. Following delivery of the head anterior posterior shoulders were easily delivered gentle downward upper traction and a nuchal cord 1 was easily reduced. Mouth nares were then bulb suctioned and baby was then placed on mother's abdomen where the umbilical cord was clamped and cut in usual fashion. Placenta was then delivered intact and Pitocin was added to the IV. scores and weight are pending but both mother and baby appear stable following delivery.
[2017-11-21] MEDS ORDERED: LABETALOL 100 MG TAB PO SCH (21:00)
[2017-11-21 23:34] VITALS: RESP 18
--- NOTE | 2017-11-22 07:31 | P.PNOBGVD ---
Subjective - Subjective Principal diagnosis: day 1 Interval history: Biju is doing very well day 1. She voices no complaints. Patient reports: Reports appetite normal, Reports voiding normally, Reports pain well controlled, Reports ambulating normally [place]: doing well Objective - Latest Vital Signs Latest vital signs: Vital Signs Temp Pulse Resp BP 11/22/17 00:00 98 18 11/21/17 22:07 98.0 F 98 18 156/72 11/21/17 21:31 97.8 F 101 H 46 H 146/75 11/21/17 21:07 97.7 F 100 18 158/82 11/21/17 20:37 98.3 F 107 H 16 135/75 11/21/17 20:22 110 H 16 136/79 11/21/17 20:07 98.3 F 114 H 20 152/86 Intake and Output 11/21/17 11/22/17 11/22/17 22:59 06:59 14:59 Intake Total 600 450 Output Total 450 Balance 150 450 Intake: Oral 600 450 Output: Urine 450 Other: # Voids 2 - Exam Lungs: bilateral: normal Chest: Normal S1, Normal S2 Extremities: Present: normal Abdomen: Present: normal appearance, soft Uterus: Present: normal, firm
[2017-11-22 07:58] LABS: Basophils # (A) 0.1 k/uL (0-0.2); Basophils % (A) 0 %; Eosinophils # (A) 0.1 k/uL (0-0.7); Eosinophils % (A) 1 %; HCT 33.6 % (34.0-46.0); HGB 11.3 gm/dL (11.4-16.0); Lymphocytes # (A) 2.2 k/uL (1.0-4.8); Lymphocytes % (A) 15 %; MCH 30.1 pg (25.0-35.0); MCHC 33.5 g/dL (31.0-37.0); Monocytes # (A) 0.6 k/uL (0-1.0); Monocytes % (A) 4 %; Neutrophils # (A) 11.9 k/uL (1.3-7.7); Neutrophils % (A) 80 %; Platelet Count 259 k/uL (150-450); RBC 3.74 m/uL (3.80-5.40); RDW 13.8 % (11.5-15.5)
[2017-11-22] MEDS: IBUPROFEN 600 MG TAB PO PRN ×3 (08:34→22:13)
[2017-11-22] MEDS: LABETALOL 100 MG TAB PO SCH ×2 (08:34→22:13)
[2017-11-22 15:21] VITALS: PULSE 92
[2017-11-22] MEDS: SENNOSIDES-DOCUSATE SODIUM 1 EACH TAB PO SCH ×2 (21:05→22:13)
[2017-11-23 09:55] VITALS: BP 107/74; TEMP 98.4
[2017-11-23] MEDS: SENNOSIDES-DOCUSATE SODIUM 1 EACH TAB PO SCH (09:58)
--- NOTE | 2017-11-23 10:38 | P.DS ---
Providers Date of admission: 11/20/17 16:19 Expected date of discharge: 11/23/17 Attending physician: Gordon Steven Primary care physician: Stated None Hospital Course: Biju is doing very well day 2. She is ambulating, voiding, and she is tolerating her diet. She voices no complaints this time. Anxiety seems improved over the night. Blood pressures stable. She'll follow me in 6 weeks. Prescription for Motrin and few Ativan until she was seen by her PCP have been provided. Otherwise her heart is regular, lungs are clear, extremities without pain. Abdomen soft uterus is firm and lochia is reported be light. Assessment day 2. Plan discharged home follow up with me in 6 weeks. Discharge drugs were thoroughly reviewed with the patient and her family and she is aware should she start having any issues where she is concerned about blood pressure other proms or ports emergency room or notify my office. Patient Condition at Discharge: Good Plan - Discharge Summary New Discharge Prescriptions: New Ibuprofen [Motrin] 600 mg PO Q6HR PRN #30 tab PRN Reason: Pain LORazepam [Ativan] 1 mg PO TID #9 tab No Action Pnv No.95/Ferrous Fum/Folic AC [ Multivitamin Tablet] 1 tab PO DAILY Labetalol [Trandate] 100 mg PO BID Loratadine [Claritin] 10 mg PO HS Heartburn Med(Unknown Name) 1 tab PO BID LORazepam [Ativan] 1 mg PO BID Discharge Medication List Pnv No.95/Ferrous Fum/Folic AC [ Multivitamin Tablet] 1 tab PO DAILY 06/19 [History] Labetalol [Trandate] 100 mg PO BID 10/21/17 [History] Heartburn Med(Unknown Name) 1 tab PO BID 11/03/17 [History] LORazepam [Ativan] 1 mg PO BID 11/03/17 [History] Loratadine [Claritin] 10 mg PO HS 11/03/17 [History] Ibuprofen [Motrin] 600 mg PO Q6HR PRN #30 tab 11/23/17 [Rx] LORazepam [Ativan] 1 mg PO TID #9 tab 11/23/17 [Rx] Follow up Appointment(s)/Referral(s): Gordon Steven DO [Doctor of Osteopathic Medicine] - 6 Weeks Activity/Diet/Wound Care/Special Instructions: No heavy lifting, limit stairs and driving, and pelvic rest. If any high temperatures, heavy bleeding, or severe pain call my office. Follow up with PCP for continuation of Xanax. Discharge Disposition: HOME SELF-CARE
[2017-11-23] MEDS: LABETALOL 100 MG TAB PO SCH (12:54)
== END 2017-11-23 12:51 | disposition home or self-care (01) | DRG 775 ==
LOC: 4FBP 16:19
PROVIDERS: ADMIT Obstetrics & Gynecology; ATTEND Obstetrics & Gynecology
PROC: 10E0XZZ Delivery of Products of Conception, External Approach (ICD-10-PCS; principal; 2017-11-21)
DX: O16.4 Unspecified maternal hypertension, complicating childbirth (principal); Z37.0 Single live birth; O99.344 Other mental disorders complicating childbirth; F41.0 Panic disorder [episodic paroxysmal anxiety]; O99.62 Diseases of the digestive system complicating childbirth; K21.9 Gastro-esophageal reflux disease without esophagitis; K44.9 Diaphragmatic hernia without obstruction or gangrene; O69.81X0 Labor and delivery complicated by cord around neck, without compression, not applicable or unspecified; O99.334 Smoking (tobacco) complicating childbirth; F17.210 Nicotine dependence, cigarettes, uncomplicated; Z3A.37 37 weeks gestation of pregnancy; Z79.899 Other long term (current) drug therapy; Z88.0 Allergy status to penicillin
CPT/HCPCS: 85025; 88307

== ENCOUNTER → 2022-05-02 | Outpatient (CLI) | payer OTHER ==
[2022-05-02 07:46] VITALS: BP 127/88; PULSE 80; RESP 16; TEMP 98.1
--- NOTE | 2022-05-02 08:11 | P.GSHP ---
History of Present Illness H&P Date: 05/02/22 Chief Complaint: abnormal left breast mammogram Yovana is a 46 year old white female seen in consultation for Carlita Page regarding a mammographic abnormality in the left breast. The patient underwent a bilateral screening mammogram on [id number]. [place] [id number]. No lesions of concern had been seen in the right breast. In the left breast pleomorphic calcifications were noted in the mid third of the breast. She does not feel any lumps masses or nodules of concern in either breast. The patient has never had any surgery on her breast. She does not complain of any recent trauma or infection in the breast. She is not complaining of any abnormal nipple discharge. Caffeine: 1 pop/day used to drink 12 pack /day of pop stopped about 1 year ago nicotine: used to smoke 2/PPD stopped 6 years ago BCP: in her 20's hormones: none Family History: maternal grandmother: Breast cancer Hormonal History: menarche: 11 [id number] age at first live : 18, breast fed: no periods regular, LMP April 04, 2022 Surgical History: total thyroid resection no cancer hiatal hernia appy Medical History: hypothyroid HTN Social History: nicotine: Used to smoke 2 packs per day stopped 6 years ago Alcohol: Used to drink a Joao Busby every other day stopped 6 years ago Drugs:none - Constitutional Constitutional: Denies chills, Denies fever - EENT Eyes: denies blurred vision, denies pain Ears: deny: decreased hearing, tinnitus Ears, nose, mouth and throat: Denies headache, Denies sore throat - Breasts Breasts: bilateral: as per HPI - Cardiovascular Cardiovascular: Denies chest pain, Denies shortness of breath - Respiratory Respiratory: Denies cough, Denies 7 - Gastrointestinal Gastrointestinal: Denies abdominal pain, Denies diarrhea, Denies nausea, Denies vomiting - Genitourinary (Female) Genitourinary: Denies dysuria, Denies hematuria - Menstruation Menstruation: Reports period normal - Musculoskeletal Musculoskeletal: Reports myalgias - Integumentary Integumentary: Denies pruritus, Denies rash - Neurological Neurological: Denies numbness, Denies weakness - Psychiatric Psychiatric: Reports anxiety, Denies depression - Endocrine Endocrine: Denies fatigue, Denies weight change - Hematologic/Lymphatic Comment: none - Allergic/Immunologic Allergic/Immunologic: Reports as per HPI, Reports seasonal allergies Past Medical History Past Medical History: GERD/Reflux Additional Past Medical History / Comment(s): BACK PAIN, HIATAL HERNIA., anxiety & panic attacks History of Any Multi-Drug Resistant Organisms: None Reported Past Surgical History: Hernia Repair Additional Past Surgical History / Comment(s): EGD Past Anesthesia/Blood Transfusion Reactions: No Reported Reaction Additional Past Anesthesia/Blood Transfusion Reaction / Comment(s): FIRST ANESTHETIC Past Psychological History: Anxiety, Panic Disorder Additional Psychological History / Comment(s): currently taking ativan as needed Smoking Status: Former smoker Past Alcohol Use History: None Reported Additional Past Alcohol Use History / Comment(s): STARTED SMOKING AT AGE 31 SMOKES LESS THAN 1/2PPD. Past Drug Use History: None Reported - Past Family History Mother Family Medical History: No Reported History Medications and Allergies Home Medications Medication Instructions Recorded Confirmed Type Acetaminophen Tab [Tylenol Tab] 500 mg PO Q6H PRN 05/02/22 05/02/22 History LORazepam [Ativan] 0.25 mg PO BID 05/02/22 05/02/22 History Levothyroxine Sodium [Synthroid] 112 mcg PO DAILY 05/02/22 05/02/22 History Metoprolol Succinate (ER) [Toprol 25 mg PO DAILY 05/02/22 05/02/22 History Xl] Allergies Allergy/AdvReac Type Severity Reaction Status Date / Time Penicillins Allergy Anaphylaxis Verified 05/02/22 07:42 Surgical - Exam Vital Signs Temp Pulse Resp BP Pulse Ox 98.1 F 80 16 127/88 98 05/02/22 07:43 05/02/22 07:43 05/02/22 07:43 05/02/22 07:43 05/02/22 07:43 - General moderate distress - Eyes normal ocular movement - ENT well healed scar from thyroid resection no hearing loss - Neck trachea midline - Respiratory normal respiratory effort, clear to auscultation - Cardiovascular Rhythm: regular Heart Sounds: normal: S1, S2 - Abdomen Abdomen: soft, non tender, no guarding, no rigid, no rebound - Integumentary normal turgor, multiple tattoos - Neurologic no disoriented, no combative - Musculoskeletal normal gait, normal posture - Psychiatric oriented to time, oriented to person, oriented to place, speech is normal, memory intact Breast Exam: BRA: 36C Inspection: bilateral grade 2 ptosis Palpation: right breast: Multi-positional exam no dominant masses or nodules of concern, fibrocystic changes Right axilla: No adenopathy of concern Left breast: Multi-positional exam fibrocystic changes no dominant masses or nodules of concern Left axilla: No adenopathy of concern Results Bilateral mammogram reviewed with Dr. Muhammad Pleomorphic calcifications middle third left breast Assessment and Plan Assessment: Impression: Abnormal left breast mammogram/microcalcifications middle third Fibrocystic breast changes Plan: Stereotactic core biopsy left breast Risk and benefits of the procedure discussed with the patient. Risks include but are not limited to bleeding, infection, reaction to the anesthetic. If the lesion sampled is felt to be discordant and further tissue acquisition may be recommended. The patient understands and wishes to proceed. CC: Carlita Olivares
== END ==
LOC: WWCWWP 07:06
PROVIDERS: ATTEND Surgery
DX: N60.12 Diffuse cystic mastopathy of left breast (principal); Z88.0 Allergy status to penicillin

== ENCOUNTER → 2022-05-02 | Day surgery (SDC) | payer OTHER ==
[2022-05-02 07:28] VITALS: RESP 16
[2022-05-02 09:10] VITALS: BP 122/83; PULSE 77; TEMP 98.1
--- NOTE | 2022-05-02 10:00 | P.PCN ---
Date of Procedure: 05/02/22 Preoperative Diagnosis: Abnormal microcalcifications left breast Postoperative Diagnosis: Same Procedure(s) Performed: Left breast stereotactic core biopsy Anesthesia: local Surgeon: Karen Gutierrez Pathology: other (Breast tissue, radiograph of specimen reveals microcalcifications of concern) Disposition: same day Indications for Procedure: Pleomorphic microcalcifications left breast upper mid breast Operative Findings: Radiographic specimen reveals microcalcifications of concern Description of Procedure: The patient is a 46-year-old white female who on a screening mammogram was noted to have microcalcifications of concern in the left breast. It makes she was per formed which confirmed the calcifications. Stereotactic core biopsy was recommended. The patient was seen and examined and no lumps masses or nodules were noted on physical exam. The risks and benefits of stereotactic core biopsy were discussed with the patient and she wished to proceed. The patient was taken to the stereotactic core biopsy room. She was positioned prone on the lower rad table. A offbearer film was obtained. The lesion of concern was identified. A cc from above approach was utilized. The area was targeted. The breast was prepped using Betadine. 20 mL of 1% lidocaine were used to anesthetize the area of concern. A 9-gauge vacuum-assisted core rotating biopsy needle was driven to the correct coordinates. A prefire film was obtained and the needle was noted to be in the correct location. The needle was fired. Post-fire film revealed the needle be in the correct location. 12 core biopsy specimens were obtained. Radiograph of the specimens revealed the area of co ncern had been adequately sampled with calcifications in the specimen. The area was lavaged. A secure marked topical clip was placed. A postprocedure mammogram revealed the clip to be in the correct location. Patient tolerated the procedure in stable condition. The specimen was sent to pathology. Patient will follow-up with Dr. Patricio next week. Cc: Carlita Olivares
--- NOTE | 2022-05-02 14:35 | MM ---
Date of Procedure: 05/02/22 Preoperative Diagnosis: Abnormal microcalcifications left breast Postoperative Diagnosis: Same Procedure(s) Performed: Left breast stereotactic core biopsy Anesthesia: local Surgeon: Karen Gutierrez Pathology: other (Breast tissue, radiograph of specimen reveals microcalcifications of concern) Disposition: same day Indications for Procedure: Pleomorphic microcalcifications left breast upper mid breast Operative Findings: Radiographic specimen reveals microcalcifications of concern Description of Procedure: The patient is a 46-year-old white female who on a screening mammogram was noted to have microcalcifications of concern in the left breast. It makes she was performed which confirmed the calcifications. Stereotactic core biopsy was recommended. The patient was seen and examined and no lumps masses or nodules were noted on physical exam. The risks and benefits of stereotactic core biopsy were discussed with the patient and she wished to proceed. The patient was taken to the stereotactic core biopsy room. She was positioned prone on the lower rad table. A soda room operator film was obtained. The lesion of concern was identified. A cc from above approach was utilized. The area was targeted. The breast was prepped using Betadine. 20 mL of 1% lidocaine were used to anesthetize the area of concern. A 9-gauge vacuum-assisted core rotating biopsy needle was driven to the correct coordinates. A prefire film was obtained and the needle was noted to be in the correct location. The needle was fired. Post-fire film revealed the needle be in the correct location. 12 core biopsy specimens were obtained. Radiograph of the specimens revealed the area of concern had been adequately sampled with calcifications in the specimen. The area was lavaged. A secure marked topical clip was placed. A postprocedure mammogram revealed the clip to be in the correct location. Patient tolerated the procedure in stable condition. The specimen was sent to pathology. Patient will follow-up with Dr. Patricio next week. [facility] HOSPITALKeegan
== END ==
LOC: RADMAMWWP 07:07
PROVIDERS: ATTEND Surgery
DX: N60.22 Fibroadenosis of left breast (principal); R92.1 Mammographic calcification found on diagnostic imaging of breast
CPT/HCPCS: 88305; 19081; A4648; J2001

== ENCOUNTER → 2022-05-09 | Outpatient (CLI) | payer OTHER ==
[2022-05-09 12:40] VITALS: BP 116/79; PULSE 90; RESP 17; TEMP 97.8
--- NOTE | 2022-05-09 13:00 | P.PN ---
Subjective Progress Note Date: 05/09/22 Principal diagnosis: sterotactic core biopsy results/ benign 05-02-22 Yovana is a 46 year old white female seen in consultation for Carlita Page regarding a mammographic abnormality in the left breast. The patient underwent a bilateral screening mammogram on [id number]. This led to additional views of the left breast on . No lesions of concern had been seen in the right breast. In the left breast pleomorphic calcifications were noted in the mid third of the breast. She did not feel any lumps masses or nodules of concern in either breast. The patient had never had any surgery on her breast. She did not complain of any recent trauma or infection in the breast. She was not complaining of any abnormal nipple discharge. She underwent a stereotactic core biopsy on . Pathology revealed fibrous breast tissue with proliferative fibrocystic change having columnar cell change, sclerosing adenosis and focal focal microcalcifications. This was reviewed by radiology and felt to be concordant benign. Caffeine: 1 pop/day used to drink 12 pack /day of pop stopped about 1 year ago nicotine: used to smoke 2/PPD stopped 6 years ago BCP: in her 20's hormones: none Family History: maternal grandmother: Breast cancer Hormonal History: menarche: 11 [id number] age at first live : 18, breast fed: no periods regular, LMP April 04, 2022 Surgical History: total thyroid resection no cancer hiatal hernia appy Medical History: hypothyroid HTN Social History: nicotine: Used to smoke 2 packs per day stopped 6 years ago Alcohol: Used to drink a Joao Busby every other day stopped 6 years ago Drugs:none - Constitutional Constitutional: Denies chills, Denies fever - EENT Eyes: denies blurred vision, denies pain Ears: deny: decreased hearing, tinnitus Ears, nose, mouth and throat: Denies headache, Denies sore throat - Breasts Breasts: bilateral: as per HPI - Cardiovascular Cardiovascular: Denies chest pain, Denies shortness of breath - Respiratory Respiratory: Denies cough - Gastrointestinal Gastrointestinal: Denies abdominal pain, Denies diarrhea, Denies nausea, Denies vomiting - Genitourinary (Female) Genitourinary: Denies dysuria, Denies hematuria - Menstruation Menstruation: Reports period normal - Musculoskeletal Musculoskeletal: Reports myalgias - Integumentary Integumentary: Denies pruritus, Denies rash - Neurological Neurological: Denies numbness, Denies weakness - Psychiatric Psychiatric: Reports anxiety, Denies depression - Endocrine Endocrine: Denies fatigue, Denies weight change - Hematologic/Lymphatic Comment: none - Allergic/Immunologic Allergic/Immunologic: Reports as per HPI, Reports seasonal allergies Objective - Vital Signs Vital signs: Vital Signs Temp 97.8 F 05/09/22 12:38 Pulse 90 05/09/22 12:38 Resp 17 05/09/22 12:38 BP 116/79 05/09/22 12:38 Pulse Ox 98 05/09/22 12:38 FiO2 Intake & Output 05/08/22 05/09/22 05/09/22 18:59 06:59 18:59 Weight 86.183 kg - Constitutional General appearance: Present: cooperative - EENT Eyes: Present: EOMI ENT: Present: hearing grossly normal - Neck Neck: Present: normal ROM - Respiratory Respiratory: bilateral: CTA - Cardiovascular Rhythm: regular Heart sounds: normal: S1, S2 - Integumentary Integumentary Comment(s): mild echymosis and small hematoma left breast at biopsy site, no evidence of infection - Musculoskeletal Musculoskeletal: Present: gait normal - Psychiatric Psychiatric: Present: A&O x's 3, appropriate affect, intact judgment & insight Assessment and Plan Assessment: Impression: stero biopsy of the left breast benign specific Plan: repeat left breast mammogram in 6 months, reviewed with radiology and pathology follow up sooner if any questions CC: Carlita Olivares
== END ==
LOC: WWCWWP 12:21
PROVIDERS: ATTEND Surgery
DX: D24.2 Benign neoplasm of left breast (principal); E03.9 Hypothyroidism, unspecified; I10 Essential (primary) hypertension; Z88.0 Allergy status to penicillin

== ENCOUNTER 2022-12-26 11:32 | Emergency (ER) | payer OTHER ==
[2022-12-26] MEDS ORDERED: SODIUM CHLORIDE 0.9% 1,000 ML IV STA (12:10)
[2022-12-26] MEDS ORDERED: diphenhydrAMINE 50 MG/ML 1 ML VIAL IVP STA (12:11)
[2022-12-26] MEDS ORDERED: ONDANSETRON 4 MG/2 ML VIAL IVP STA (12:11)
[2022-12-26] MEDS ORDERED: KETOROLAC 15 MG/ML 1 ML VIAL IVP STA (12:11)
--- NOTE | 2022-12-26 12:14 | ED ---
Neuro HPI - General Chief Complaint: Neuro Symptoms/Deficit Stated Complaint: vision issues, headache Time Seen by Provider: 12/26/22 12:01 Source: patient, RN notes reviewed Mode of arrival: ambulatory - History of Present Illness Is the patient presenting with stroke symptoms?: No Initial Comments: Patient is a 47-year-old female presenting to the emergency room at the direction of her roll plugger whom she called today. She reports that she called for an appointment today with her roll plugger after having a second event of vision changes. She reports that after she has the vision changes that she develops a generalized headache which is more severe today than it was yesterday. She also believes that she may have had a syncopal event today caused by the pain in which she found herself on the floor afterwards. She pain to any of her extremities post syncopal event, wounds or range of motion impairment. She describes the vision changes as a blackening and graying of her vision that is not present on exam at this time. She denies any history of migraines but does have a history of anxiety which she takes Ativan for regularly. As stated above she does not have any visual disturbances at this time, she denies any other focal neurological deficits and including any trouble with speech, confusion, difficulty ambulating, weakness, or paresthesia. Addition to her anxiety history she has past medical history significant for GERD. - Related Data Home Medications: Home Medications Medication Instructions Recorded Confirmed LORazepam [Ativan] 0.5 mg PO DAILY 05/02/22 12/26/22 Levothyroxine Sodium [Synthroid] 112 mcg PO DAILY 05/02/22 12/26/22 Allergies/Adverse Reactions: Allergies Allergy/AdvReac Type Severity Reaction Status Date / Time Penicillins Allergy Anaphylaxis Verified 12/26/22 12:40 Review of Systems ROS Statement: Those systems with pertinent positive or pertinent negative responses have been documented in the HPI. ROS Other: All systems not noted in ROS Statement are negative. General Exam Limitations: no limitations General appearance: alert, in no apparent distress Head exam: Present: atraumatic, normocephalic, normal inspection Eye exam: Present: normal appearance, PERRL, EOMI. Absent: scleral icterus, conjunctival injection, nystagmus, periorbital swelling ENT exam: Present: normal exam, mucous membranes moist Neck exam: Present: normal inspection, full ROM. Absent: tenderness Respiratory exam: Present: normal lung sounds bilaterally. Absent: respiratory distress, wheezes, rales, rhonchi, stridor Cardiovascular Exam: Present: regular rate, normal rhythm, normal heart sounds. Absent: systolic murmur, diastolic murmur, rubs, gallop, clicks GI/Abdominal exam: Present: soft, normal bowel sounds. Absent: distended, tenderness, guarding, rebound, rigid Extremities exam: Present: normal inspection, full ROM. Absent: pedal edema, joint swelling Back exam: Present: normal inspection, full ROM Neurological exam: Present: alert, oriented X3, CN II-XII intact, normal gait Expanded Cranial nerves: EOM's Intact: Normal, Gag Reflex: Normal, Tongue Deviation: Normal, Facial Sensation: Normal Cerebellar function: Heel to Sharma: Normal Sensory exam: Upper Extremity Light Touch: Normal, Lower Extremity Light Touch: Normal Motor strength exam: RUE: 5, LUE: 5, RLE: 5, LLE: 5 [place] Total: 15 Psychiatric exam: Present: normal affect, normal mood Skin exam: Present: warm, dry, intact, normal color. Absent: rash Stroke MDM - Lab Data Result diagrams: 12/26/22 12:35 12/26/22 12:35 Lab Results 12/26/22 12/26/22 12/26/22 Range/Units 12:35 12:35 12:35 WBC 5.9 (3.8-10.6) k/uL RBC 4.57 (3.80-5.40) m/uL Hgb 14.1 (11.4-16.0) gm/dL Hct 41.4 (34.0-46.0) % MCV 90.5 (80.0-100.0) fL MCH 30.9 (25.0-35.0) pg MCHC 34.2 (31.0-37.0) g/dL RDW 13.1 (11.5-15.5) % Plt Count 314 (150-450) k/uL MPV 7.8 Neutrophils % 67 % Lymphocytes % 27 % Monocytes % 3 % Eosinophils % 1 % Basophils % 1 % Neutrophils # 3.9 (1.3-7.7) k/uL Lymphocytes # 1.6 (1.0-4.8) k/uL Monocytes # 0.2 (0-1.0) k/uL Eosinophils # 0.1 (0-0.7) k/uL Basophils # 0.0 (0-0.2) k/uL PT 10.1 (9.0-12.0) sec INR 0.9 (<1.2) APTT 24.3 (22.0-30.0) sec Sodium 140 (137-145) mmol/L Potassium 4.4 (3.5-5.1) mmol/L Chloride 103 (98-107) mmol/L Carbon Dioxide 26 (22-30) mmol/L Anion Gap 11 mmol/L BUN 16 (7-17) mg/dL Creatinine 0.77 (0.52-1.04) mg/dL Est GFR (CKD-EPI)AfAm >90 (>60 ml/min/1.73 sqM) Est GFR (CKD-EPI)NonAf >90 (>60 ml/min/1.73 sqM) Glucose 93 (74-99) mg/dL Calcium 9.5 (8.4-10.2) mg/dL Total Bilirubin 0.4 (0.2-1.3) mg/dL AST 22 (14-36) U/L ALT 18 (4-34) U/L Alkaline Phosphatase 64 (38-126) U/L Creatine Kinase 102 (30-135) U/L Troponin I (0.000-0.034) ng/mL Total Protein 8.0 (6.3-8.2) g/dL Albumin 4.5 (3.5-5.0) g/dL 12/26/22 Range/Units 12:35 WBC (3.8-10.6) k/uL RBC (3.80-5.40) m/uL Hgb (11.4-16.0) gm/dL Hct (34.0-46.0) % MCV (80.0-100.0) fL MCH (25.0-35.0) pg MCHC (31.0-37.0) g/dL RDW (11.5-15.5) % Plt Count (150-450) k/uL MPV Neutrophils % % Lymphocytes % % Monocytes % % Eosinophils % % Basophils % % Neutrophils # (1.3-7.7) k/uL Lymphocytes # (1.0-4.8) k/uL Monocytes # (0-1.0) k/uL Eosinophils # (0-0.7) k/uL Basophils # (0-0.2) k/uL PT (9.0-12.0) sec INR (<1.2) APTT (22.0-30.0) sec Sodium (137-145) mmol/L Potassium (3.5-5.1) mmol/L Chloride (98-107) mmol/L Carbon Dioxide (22-30) mmol/L Anion Gap mmol/L BUN (7-17) mg/dL Creatinine (0.52-1.04) mg/dL Est GFR (CKD-EPI)AfAm (>60 ml/min/1.73 sqM) Est GFR (CKD-EPI)NonAf (>60 ml/min/1.73 sqM) Glucose (74-99) mg/dL Calcium (8.4-10.2) mg/dL Total Bilirubin (0.2-1.3) mg/dL AST (14-36) U/L ALT (4-34) U/L Alkaline Phosphatase (38-126) U/L Creatine Kinase (30-135) U/L Troponin I <0.012 (0.000-0.034) ng/mL Total Protein (6.3-8.2) g/dL Albumin (3.5-5.0) g/dL - Medical Decision Making Was pt. sent in by a medical professional or institution ([facility], [employer], urgent care, hospital, or fci...) When possible be specific @ -No Did you speak to anyone other than the patient for history (EMS, parent, family, police, friend...)? What history was obtained from this source @ -No Did you review nursing and triage notes (agree or disagree)? Why? @ -I reviewed and agree with nursing and triage notes Were old charts reviewed (outside hosp., previous admission, EMS record, old EKG, old radiological studies, urgent care reports/EKG's, fci records)? Report findings @ -No old charts were reviewed Differential Diagnosis (chest pain, altered mental status, abdominal pain women, abdominal pain men, vaginal bleeding, weakness, fever, dyspnea, syncope, headache, dizziness, GI bleed, back pain, seizure, CVA, palpatations, mental health, musculoskeletal)? @ -Differential Headache: Migraine, tension, cluster, carbon monoxide, central venous thrombosis, pension karma temporal arteritis, acute closure glaucoma, intercranial hemorrhage, mastoiditis, sinusitis, head injury, this is not meant to be an all-inclusive list. EKG interpreted by me (3pts min.). @ -Sinus rhythm, ventricular rate 72 bpm, CA interval 190 ms, QRS duration 92 ms, QT/QTC 356/381 ms, PRT axes 20, 32, 39 X-rays interpreted by me (1pt min.). @ -None done CT interpreted by me (1pt min.). @ -CT of the brain without contrast: No acute intracranial process, no mass, intracranial hemorrhage, or shift. U/S interpreted by me (1pt. min.). @ -None done What testing was considered but not performed or refused? (CT, X-rays, U/S, labs)? Why? @ -None What meds were considered but not given or refused? Why? @ -None Did you discuss the management of the patient with other professionals (professionals i.e. , PA, CAR SEAT MAKER, lab, RT, psych nurse, social work supervisor, automatic furnace operator, teacher, aoc airspace control officer, director of casework department)? Give summary @ -No Was smoking cessation discussed for >3mins.? @ -No Was critical care preformed (if so, how long)? @ -No Were there social determinants of health that impacted care today? How? (Homelessness, low income, unemployed, alcoholism, drug addiction, transportation, low edu. Level, literacy, decrease access to med. care, [facility], rehab)? @ -No Was there de-escalation of care discussed even if they declined (Discuss DNR or withdrawal of care, Hospice)? DNR status @ -No What co-morbidities impacted this encounter? (DM, HTN, Smoking, COPD, CAD, Cancer, CVA, ARF, Chemo, Hep., AIDS, mental health diagnosis, sleep apnea, morbid obesity)? @ -None Was patient admitted / discharged? Hospital course, mention meds given and route, prescriptions, significant lab abnormalities, going to OR and other pertinent info. @ -47-year-old female presenting to the emergency room at the direction of her roll plugger whom she called today. She reports that she called for an appointment today with her roll plugger after having a second event of vision changes. She reports that after she has the vision changes that she develops a generalized headache which is more severe today than it was yesterday. She also believes that she may have had a syncopal event today caused by the pain in which she found herself on the floor afterwards. Will start workup for headache with visual disturbances not present on exam without any neurological deficits with CT of the brain without contrast, laboratory studies of CBC, CMP, coag, CK along with EKG. Will give migraine cocktail 1 L normal saline, Toradol, Benadryl and Zofran and monitor response. All laboratory studies within normal limits. EKG demonstrates sinus rhythm. CT scan of the brain shows no acute intracranial process. Pain improved with migraine cocktail. No return of visual disturbances. Findings discussed with patient. Advised that symptoms are consistent with migraine headaches with aura encouraging follow-up with primary care provider for further evaluation and treatment along with her roll plugger. Advised utilization of [id number] ibuprofen or Excedrin Migraine for recurrence of headaches. Blood pressure improved with control of pain. Questions and concerns answered. Return parameters to the emergency room discussed. Will discharge home in stable condition advising [id number] Motrin or Excedrin for headaches along with follow-up with her primary care provider and roll plugger. Undiagnosed new problem with uncertain prognosis? @ -No Drug Therapy requiring intensive monitoring for toxicity (Heparin, Nitro, Insulin, Cardizem)? @ -No Were any procedures done? @ -No Diagnosis/symptom? @ -Headache Acute, or Chronic, or Acute on Chronic? @ -Acute Uncomplicated (without systemic symptoms) or Complicated (systemic symptoms)? @ -Uncomplicated Side effects of treatment? @ -No Exacerbation, Progression, or Severe Exacerbation? @ -No Poses a threat to life or bodily function? How? (Chest pain, [place], SC, pneumonia, PE, COPD, DKA, ARF, appy, cholecystitis, CVA, Diverticulitis, Homicidal, Suicidal, threat to staff... and all critical care pts) @ -No Diagnosis/symptom? @ -Visual disturbances not present on exam Acute, or Chronic, or Acute on Chronic? @ -Acute Uncomplicated (without systemic symptoms) or Complicated (systemic symptoms)? @ -Uncomplicated Side effects of treatment? @ -none Exacerbation, Progression, or Severe Exacerbation] @ -no Poses a threat to life or bodily function? @ -no Case discussed with Dr. Taveras. Past Medical History Past Medical History: GERD/Reflux Additional Past Medical History / Comment(s): BACK PAIN, anxiety & panic attacks History of Any Multi-Drug Resistant Organisms: None Reported Past Surgical History: Hernia Repair Additional Past Surgical History / Comment(s): EGD Past Anesthesia/Blood Transfusion Reactions: No Reported Reaction Additional Past Anesthesia/Blood Transfusion Reaction / Comment(s): FIRST ANESTHETIC Past Psychological History: Anxiety, Panic Disorder Smoking Status: Former smoker Past Alcohol Use History: None Reported Past Drug Use History: Marijuana - Past Family History Mother Family Medical History: No Reported History Course Vital Signs 12/26/22 11:45 Temperature 98.4 F Pulse Rate 71 Respiratory 20 Rate Blood Pressure 155/101 O2 Sat by Pulse 97 Oximetry Disposition Clinical Impression: Headache, Visual discomfort Disposition: HOME SELF-CARE Condition: Stable Instructions (If sedation given, give patient instructions): Acute Headache (ED) Additional Instructions: Utilize ibuprofen or Excedrin Migraine for headaches as needed. Continue your regular home medications for your anxiety. Please follow-up with your roll plugger and her primary care provider regarding your headache and visual disturbances. Please return to the Emergency Department if symptoms worsen or any other concerns. Is patient prescribed a controlled substance at d/c from ED?: No Referrals: Nonstaff,Physician [REFERRING] - 1-2 days Time of Disposition: 14:35
[2022-12-26 12:58] LABS: Basophils % (A) 1 %; Eosinophils # (A) 0.1 k/uL (0-0.7); Eosinophils % (A) 1 %; HCT 41.4 % (34.0-46.0); HGB 14.1 gm/dL (11.4-16.0); Lymphocytes # (A) 1.6 k/uL (1.0-4.8); Lymphocytes % (A) 27 %; MCH 30.9 pg (25.0-35.0); MCHC 34.2 g/dL (31.0-37.0); MCV 90.5 fL (80.0-100.0); Mean Platelet Volume 7.8; Monocytes # (A) 0.2 k/uL (0-1.0); Monocytes % (A) 3 %; Neutrophils # (A) 3.9 k/uL (1.3-7.7); Neutrophils % (A) 67 %; Platelet Count 314 k/uL (150-450); RBC 4.57 m/uL (3.80-5.40); RDW 13.1 % (11.5-15.5); WBC 5.9 k/uL (3.8-10.6)
[2022-12-26 13:09] LABS: ALT 18 U/L (4-34); AST 22 U/L (14-36); African American GFR (CKD) >90 (>60 ml/min/1.73 sqM); Albumin 4.5 g/dL (3.5-5.0); Alkaline Phosphatase 64 U/L (38-126); Anion Gap 11 mmol/L; Blood Urea Nitrogen 16 mg/dL (7-17); Calcium 9.5 mg/dL (8.4-10.2); Carbon Dioxide 26 mmol/L (22-30); Chloride 103 mmol/L (98-107); Creatine Kinase 102 U/L (30-135); Glucose 93 mg/dL (74-99); Non-African American GFR(CKD) >90 (>60 ml/min/1.73 sqM); Potassium 4.4 mmol/L (3.5-5.1); Sodium 140 mmol/L (137-145); Total Bilirubin 0.4 mg/dL (0.2-1.3)
[2022-12-26 13:21] LABS: INR 0.9 (<1.2); Partial Thromboplastin Time 24.3 sec (22.0-30.0); Prothrombin Time 10.1 sec (9.0-12.0)
--- NOTE | 2022-12-26 14:18 | CT ---
EXAMINATION TYPE: CT brain wo con CT DLP: 1217 mGycm, Automated exposure control for dose reduction was used. DATE OF EXAM: 12/26/2022 1:06 PM COMPARISON: None. CLINICAL INDICATION:Female, 47 years old with history of Neuro deficit, acute, stroke suspected, TECHNIQUE: Brain: Axial CT images of the brain were obtained with coronal and sagittal reformats created and rev iewed. Contrast used: None. Oral contrast used: None. FINDINGS: Brain: Extra-axial spaces: No abnormal extra-axial fluid collections. Ventricular system: Within normal limits Cerebral parenchyma: No acute intraparenchymal hemorrhage or mass effect. The el-white junction is well differentiated. Cerebellum: Unremarkable. Mass effect: No evidence of midline shift. Intracranial vasculature: unremarkable Soft tissues: Normal. Calvarium/osseous structures: No depressed skull fracture. Paranasal sinuses and mastoid air cells: Mild scattered paranasal sinus disease. Visualized orbits: Orbital contents are intact. IMPRESSION: No acute intracranial process.
[2022-12-26 14:50] VITALS: BP 125/94; PULSE 73; RESP 9; TEMP 98.7
== END 2022-12-26 15:13 | disposition home or self-care (01) ==
LOC: EC 11:32
DX: H53.149 Visual discomfort, unspecified (principal); R51.9 Headache, unspecified; F12.90 Cannabis use, unspecified, uncomplicated; Z88.0 Allergy status to penicillin; Z87.891 Personal history of nicotine dependence
CPT/HCPCS: 36415; 93005; 80053; 82550; 84484; 85025; 85610; 85730; 70450; 99284; 96374; 96375 ×2; J1200; J2405; J1885

== ENCOUNTER → 2024-02-18 | Outpatient (CLI) | payer OTHER ==
[2024-02-18 15:40] LABS: ALT 22 U/L (8-44); AST 19 U/L (13-35); Albumin 4.7 g/dL (3.8-4.9); Albumin/Globulin Ratio 1.74 Ratio (1.60-3.17); Alkaline Phosphatase 76 U/L (41-126); BUN/Creat Ratio 18.88 Ratio (12.00-20.00); Blood Urea Nitrogen 15.1 mg/dL (9.0-27.0); Calcium 9.7 mg/dL (8.7-10.3); Chloride 101 mmol/L (96-109); Globulin 2.7 g/dL (1.6-3.3); Glucose 97 mg/dL (70-110); Potassium 4.5 mmol/L (3.5-5.5); Sodium 140 mmol/L (135-145); T4, Free (Free Thyroxine) 1.23 ng/dL (0.80-1.80); Total Bilirubin 0.2 mg/dL (0.3-1.2); Total Protein 7.4 g/dL (6.2-8.2)
[2024-02-18 15:42] LABS: Basophils # (A) 0.05 X 10*3/uL (0.00-0.10); Basophils % (A) 0.7 %; Eosinophils # (A) 0.08 X 10*3/uL (0.04-0.35); Eosinophils % (A) 1.2 %; HCT 41.5 % (37.2-46.3); HGB 13.4 g/dL (12.0-15.0); Lymphocytes # (A) 2.15 X 10*3/uL (0.90-5.00); Lymphocytes % (A) 31.4 %; MCH 29.8 pg (27.0-32.0); MCHC 32.3 g/dL (32.0-37.0); MCV 92.4 FL (80.0-97.0); Mean Platelet Volume 10.5 FL (9.5-12.2); Monocytes # (A) 0.34 X 10*3/uL (0.20-1.00); NRBC Per 100 WBC 0 X 10*3/uL (0.00-0.01); Neutrophils % (A) 61.4 %; Platelet Count 326 X 10*3/uL (140-440); RBC 4.49 X 10*6/uL (4.10-5.20); RDW 12.8 % (11.5-14.5); WBC 6.84 X 10*3/uL (4.50-10.00)
== END ==
LOC: LABWHC1 09:43
PROVIDERS: ATTEND Physician Assistant
DX: I15.9 Secondary hypertension, unspecified (principal); I47.10 Supraventricular tachycardia, unspecified; F41.0 Panic disorder [episodic paroxysmal anxiety]; E06.3 Autoimmune thyroiditis
CPT/HCPCS: 36415; 80053; 84439; 84443; 85025

== ENCOUNTER → 2024-03-25 | Outpatient (CLI) | payer OTHER ==
[2024-03-25 17:02] LABS: Follicle Stimulating Hormone 38.6 mIU/mL; Luteinizing Hormone 20.9 mIU/mL; T4, Free (Free Thyroxine) 1.2 ng/dL (0.80-1.80)
== END | disposition home or self-care (01) ==
LOC: LABWHC1 10:40
PROVIDERS: ATTEND Family Medicine
DX: E89.0 Postprocedural hypothyroidism (principal)
CPT/HCPCS: 36415; 83001; 83002; 84439; 84443; 84481

== ENCOUNTER 2024-08-05 18:18 | Emergency (ER) | payer OTHER ==
[2024-08-05 19:38] LABS: Appearance,Urine Clear (Clear); Bacteria,Urine Rare /hpf; Bilirubin,Urine Negative (Negative); Blood,Urine Small (Negative); Color,Urine Colorless; Glucose,Urine (UA) Negative (Negative); Ketones,Urine Negative (Negative); Leukocyte Esterase,Urine Trace (Negative); Nitrite,Urine Negative (Negative); PH, Urine 5.5 (5.0-8.0); Protein,Urine Negative (Negative); RBC,Urine 3 /hpf (0-5); Specific Gravity,Urine 1.004 (1.001-1.035); Squamous Epithelial Cell,Urine 3 /hpf (0-4); Urobilinogen,Urine <2.0 mg/dL (<2.0); WBC,Urine 3 /hpf (0-5)
[2024-08-05] MEDS: SODIUM CHLORIDE 0.9% 1,000 ML IV STA (19:50)
--- NOTE | 2024-08-05 20:14 | CT ---
EXAMINATION TYPE: CT brain wo con DATE OF EXAM: 08/05/2024 COMPARISON: 12/26/2022 CLINICAL INDICATION: Female, 49 years old with history of headache, near-syncope; PHH, Headache, near -syncope. TECHNIQUE: CT of the brain performed without contrast with sagittal and coronal reformats. CT DLP: 1122.[address] CTDI: mGy Automated exposure control for dose reduction was used. FINDINGS: There is no acute intracranial hemorrhage, mass effect, or midline shift identified. The ventricles and sulci are within normal limits in size. The globes are intact and the visualized sinuses are alla ar. IMPRESSION: No acute intracranial hemorrhage, mass effect, or midline shift is seen. [facility], , 08/05/2024 8:12 PM
--- NOTE | 2024-08-05 20:19 | XR ---
EXAMINATION TYPE: XR chest 2V DATE OF EXAM: 08/05/2024 8:07 PM COMPARISON: 01/19/2017 CLINICAL INDICATION: Female, 49 years old with history of near-syncope: Shortness of breath TECHNIQUE: XR chest 2V views of the chest are obtained. FINDINGS: Scattered senescent parenchymal changes noted. Hyperinflation compatible with COPD. No evidence for infiltrate. No evidence for atelectasis. Heart size is stable. Mediastinal structures are stable and grossly unremarkable. No evidence for hilar prominence. Degenerative changes dorsal spine. IMPRESSION: 1. No evidence for acute pulmonary disease. [facility], , 08/05/2024 8:16 PM
[2024-08-05 20:22] LABS: Basophils # (A) 0.1 k/uL (0-0.2); Basophils % (A) 1 %; Eosinophils # (A) 0.1 k/uL (0-0.7); Eosinophils % (A) 1 %; HCT 41.1 % (34.0-46.0); HGB 13.1 gm/dL (11.4-16.0); Lymphocytes % (A) 25 %; MCH 28.5 pg (25.0-35.0); MCV 89.3 fL (80.0-100.0); Mean Platelet Volume 7.7; Monocytes # (A) 0.3 k/uL (0-1.0); Monocytes % (A) 4 %; Neutrophils # (A) 5.5 k/uL (1.3-7.7); Neutrophils % (A) 68 %; Platelet Count 310 k/uL (150-450); RDW 13.2 % (11.5-15.5); WBC 8.1 k/uL (3.8-10.6)
[2024-08-05 20:35] LABS: ALT 19 U/L (4-34); AST 21 U/L (14-36); African American GFR (CKD) >90 (>60 ml/min/1.73 sqM); Albumin 4.4 g/dL (3.5-5.0); Alkaline Phosphatase 71 U/L (38-126); Anion Gap 9 mmol/L; Blood Urea Nitrogen 26 mg/dL (7-17); Calcium 9.2 mg/dL (8.4-10.2); Carbon Dioxide 27 mmol/L (22-30); Chloride 103 mmol/L (98-107); Glucose 99 mg/dL (74-99); Magnesium 2.2 mg/dL (1.6-2.3); Non-African American GFR(CKD) >90 (>60 ml/min/1.73 sqM); Potassium 4.3 mmol/L (3.5-5.1); Sodium 139 mmol/L (137-145); Total Bilirubin 0.3 mg/dL (0.2-1.3); Total Protein 7.3 g/dL (6.3-8.2)
[2024-08-05 20:59] LABS: Influenza A Not Detected (Not Detectd); Influenza B Not Detected (Not Detectd); RSV Not Detected (Not Detectd)
[2024-08-05] MEDS: KETOROLAC 15 MG/ML 1 ML VIAL IVP STA (21:00)
[2024-08-05] MEDS: MECLIZINE 12.5 MG TAB PO STA (21:02)
--- NOTE | 2024-08-05 21:27 | ED ---
General Adult HPI - General Chief complaint: Syncope Stated complaint: near syncope Time Seen by Provider: 08/05/24 18:34 Source: EMS Mode of arrival: EMS - History of Present Illness Initial comments: 49-year-old female presenting with chief complaint of headache. Patient states the headache started when she woke up today. Feels like a pressure sensation in the front of her face. She states then she went up to use the bathroom and became dizzy. She states that everything started going dark and the room was spinning. She went back to her bed and states that she fell onto the bed but did not lose consciousness. She has had some chest burning since this episode. No difficulty breathing. No cough congestion or sore throat. No nausea vomiting or abdominal pain. No numbness tingling or weakness. - Related Data Home Medications Medication Instructions Recorded Confirmed LORazepam [Ativan] 0.5 mg PO BID PRN 05/02/22 08/05/24 Levothyroxine Sodium [Synthroid] 112 mcg PO DAILY 05/02/22 08/05/24 Allergies Allergy/AdvReac Type Severity Reaction Status Date / Time morphine Allergy Rash/Hives Verified 08/05/24 20:25 Penicillins Allergy Anaphylaxis Verified 08/05/24 20:25 hydromorphone [From Dilaudid] AdvReac Hallucinati Verified 08/05/24 20:25 ons Review of Systems ROS Statement: Those systems with pertinent positive or pertinent negative responses have been documented in the HPI. ROS Other: All systems not noted in ROS Statement are negative. Past Medical History Past Medical History: GERD/Reflux Additional Past Medical History / Comment(s): BACK PAIN, anxiety & panic attacks History of Any Multi-Drug Resistant Organisms: None Reported Past Surgical History: Hernia Repair Additional Past Surgical History / Comment(s): EGD Past Anesthesia/Blood Transfusion Reactions: No Reported Reaction Additional Past Anesthesia/Blood Transfusion Reaction / Comment(s): FIRST ANESTHETIC Past Psychological History: Anxiety, Panic Disorder Smoking Status: Former smoker Past Alcohol Use History: None Reported Past Drug Use History: Marijuana - Past Family History Mother Family Medical History: No Reported History General Exam General appearance: alert, in no apparent distress Head exam: Present: atraumatic, normocephalic, normal inspection Eye exam: Present: normal appearance, PERRL, EOMI. Absent: periorbital swelling Pupils: Present: normal accommodation Neck exam: Present: normal inspection. Absent: meningismus Respiratory exam: Present: normal lung sounds bilaterally. Absent: respiratory distress, wheezes, rales, rhonchi, stridor Cardiovascular Exam: Present: regular rate, normal rhythm, normal heart sounds. Absent: systolic murmur, diastolic murmur, rubs, gallop, clicks Extremities exam: Present: normal inspection, full ROM Neurological exam: Present: alert, oriented X3 Expanded Patient oriented to: Present: person, place, time Speech: Present: fluid speech Cranial nerves: EOM's Intact: Normal Cerebellar function: Finger to Nose: Normal, Heel to Sharma: Normal Motor strength exam: RUE: 5, LUE: 5, RLE: 5, LLE: 5 Eye Response: (4) open spontaneously Motor Response: (6) obeys commands Verbal Response: (5) oriented Chucho Total: 15 Psychiatric exam: Present: normal affect, normal mood Skin exam: Present: warm, dry, normal color Course Vital Signs 08/05/24 08/05/24 08/05/24 18:25 22:01 22:44 Temperature 98.0 F 98.1 F Pulse Rate 86 90 Pulse Rate [ 91 Left Pulse Oximetery] Respiratory 16 18 Rate Blood Pressure 152/87 148/90 Blood Pressure 156/96 [Right Arm Sitting] Blood Pressure 150/108 [Right Arm Standing] Blood Pressure 143/98 [Right Arm Supine] O2 Sat by Pulse 98 100 99 Oximetry Medical Decision Making - Medical Decision Making EKG shows sinus rhythm ventricular rate 70. MD interval 190. QRS 90. QT 360. QTc 381 Was pt. sent in by a medical professional or institution (Dr. PA, LENS ASSISTANT, urgent care, hospital, or skilled nursing...) When possible be specific @ -No Did you speak to anyone other than the patient for history (EMS, parent, family, police, friend...)? What history was obtained from this source @ -No Did you review nursing and triage notes (agree or disagree)? Why? @ -I reviewed and agree with nursing and triage notes Were old charts reviewed (outside hosp., previous admission, EMS record, old EKG, old radiological studies, urgent care reports/EKG's, skilled nursing records)? Report findings @ -No old charts were reviewed Differential Diagnosis (chest pain, altered mental status, abdominal pain women, abdominal pain men, vaginal bleeding, weakness, fever, dyspnea, syncope, headache, dizziness, GI bleed, back pain, seizure, CVA, palpatations, mental health, musculoskeletal)? @ -MDM Differential Headache: Migraine, tension, cluster, carbon monoxide, central venous thrombosis, pension karma temporal arteritis, acute closure glaucoma, intercranial hemorrhage, mastoiditis, sinusitis, head injury this is not meant to be an all-inclusive list. EKG interpreted by me (3pts min.). @ -As above X-rays interpreted by me (1pt min.). @ -Chest x-ray shows no acute process CT interpreted by me (1pt min.). @ -CT brain shows no acute intracranial hemorrhage, mass effect, or midline shift is seen U/S interpreted by me (1pt. min.). @ -None done What testing was considered but not performed or refused? (CT, X-rays, U/S, labs)? Why? @ -None What meds were considered but not given or refused? Why? @ -None Did you discuss the management of the patient with other professionals (professionals i.e. , PA, LENS ASSISTANT, lab, RT, psych nurse, geriatric social work professor, clin tech, teacher, environmental officer, case hardener)? Give summary @ -No Was smoking cessation discussed for >3mins.? @ -No Was critical care preformed (if so, how long)? @ -No Were there social determinants of health that impacted care today? How? (H omelessness, low income, unemployed, alcoholism, drug addiction, transportation, low edu. Level, literacy, decrease access to med. care, long term, rehab)? @ -No Was there de-escalation of care discussed even if they declined (Discuss DNR or withdrawal of care, Hospice)? DNR status @ -No What co-morbidities impacted this encounter? (DM, HTN, Smoking, COPD, CAD, Cancer, CVA, ARF, Chemo, Hep., AIDS, mental health diagnosis, sleep apnea, morbid obesity)? @ -None Was patient admitted / discharged? Hospital course, mention meds given and route, prescriptions, significant lab abnormalities, going to OR and other pertinent info. @ -49-year-old female presenting with chief complaint of headache and an episode of near syncope at home. History and physical examination are conducted. GCS is 15 with no focal neurological deficits. BUN 26, patient is receiving IV fluids. Remainder of lab work is grossly unremarkable. Urine shows signs of contamination with 3 squamous cells. Negative hCG. She is negative for influenza, RSV, COVID. Chest x-ray shows no acute process and CT brain shows no acute process. EKG shows sinus rhythm. Negative orthostatic vitals. On reassessment patient is resting in the stretcher, she does report anxiety over her blood pressure. Blood pressure has ranged from 148/98 to 156/96. Patient is educated on today's findings. Educated on monitoring blood pressure and following up with PCP regarding blood pressure findings today. Patient would like something for anxiety, she is given 1 mg of Ativan. Follow- up with PCP. Report back to ER with any new or worsening symptoms. Discussed return parameters and answered all questions. Patient conveyed verbal un derstanding and agreed to the plan. I discussed this case in detail with my attending Dr. Jara Undiagnosed new problem with uncertain prognosis? @ -No Drug Therapy requiring intensive monitoring for toxicity (Heparin, Nitro, Insulin, Cardizem)? @ -No Were any procedures done? @ -No Diagnosis/symptom? @ -Near syncopal episode, headache, hypertension Acute, or Chronic, or Acute on Chronic? @ -Acute Uncomplicated (without systemic symptoms) or Complicated (systemic symptoms)? @ -Uncomplicated Side effects of treatment? @ -No Exacerbation, Progression, or Severe Exacerbation? @ -No Poses a threat to life or bodily function? How? (Chest pain, [place], [place], pneumonia, PE, COPD, DKA, ARF, appy, cholecystitis, CVA, Diverticulitis, Homicidal, Suicidal, threat to staff... and all critical care pts) @ -Unlikely - Lab Data Result diagrams: 08/05/24 19:48 08/05/24 19:48 Lab Results 08/05/24 08/05/24 08/05/24 Range/Units 19:12 19:18 19:48 WBC 8.1 (3.8-10.6) k/uL RBC 4.60 (3.80-5.40) m/uL Hgb 13.1 (11.4-16.0) gm/dL Hct 41.1 (34.0-46.0) % MCV 89.3 (80.0-100.0) fL MCH 28.5 (25.0-35.0) pg MCHC 32.0 (31.0-37.0) g/dL RDW 13.2 (11.5-15.5) % Plt Count 310 (150-450) k/uL MPV 7.7 Neutrophils % 68 % Lymphocytes % 25 % Monocytes % 4 % Eosinophils % 1 % Basophils % 1 % Neutrophils # 5.5 (1.3-7.7) k/uL Lymphocytes # 2.0 (1.0-4.8) k/uL Monocytes # 0.3 (0-1.0) k/uL Eosinophils # 0.1 (0-0.7) k/uL Basophils # 0.1 (0-0.2) k/uL PT (10.0-12.5) sec INR (<1.2) APTT (22.0-30.0) sec Sodium (137-145) mmol/L Potassium (3.5-5.1) mmol/L Chloride (98-107) mmol/L Carbon Dioxide (22-30) mmol/L Anion Gap mmol/L BUN (7-17) mg/dL Creatinine (0.52-1.04) mg/dL Est GFR (CKD-EPI)AfAm (>60 ml/min/1.73 sqM) Est GFR (CKD-EPI)NonAf (>60 ml/min/1.73 sqM) Glucose (74-99) mg/dL Calcium (8.4-10.2) mg/dL Magnesium (1.6-2.3) mg/dL Total Bilirubin (0.2-1.3) mg/dL AST (14-36) U/L ALT (4-34) U/L Alkaline Phosphatase (38-126) U/L Troponin I (0.000-0.034) ng/mL Total Protein (6.3-8.2) g/dL Albumin (3.5-5.0) g/dL Urine Color Colorless Urine Appearance Clear (Clear) Urine pH 5.5 (5.0-8.0) Ur Specific [place] 1.004 (1.001-1.035) Urine Protein Negative (Negative) Urine Glucose (UA) Negative (Negative) Urine Ketones Negative (Negative) Urine Blood Small H (Negative) Urine Nitrite Negative (Negative) Urine Bilirubin Negative (Negative) Urine Urobilinogen <2.0 (<2.0) mg/dL Ur Leukocyte Esterase Trace H (Negative) Urine RBC 3 (0-5) /hpf Urine WBC 3 (0-5) /hpf Ur Squamous Epith Cells 3 (0-4) /hpf Urine Bacteria Rare H (None) /hpf Urine HCG, Qual Not Detected (Not Detectd) Influenza Type A (PCR) (Not Detectd) Influenza Type B (PCR) (Not Detectd) RSV (PCR) (Not Detectd) SARS-CoV-2 (PCR) (Not Detectd) 08/05/24 08/05/24 08/05/24 Range/Units 19:48 19:48 19:48 WBC (3.8-10.6) k/uL RBC (3.80-5.40) m/uL Hgb (11.4-16.0) gm/dL Hct (34.0-46.0) % MCV (80.0-100.0) fL MCH (25.0-35.0) pg MCHC (31.0-37.0) g/dL RDW (11.5-15.5) % Plt Count (150-450) k/uL MPV Neutrophils % % Lymphocytes % % Monocytes % % Eosinophils % % Basophils % % Neutrophils # (1.3-7.7) k/uL Lymphocytes # (1.0-4.8) k/uL Monocytes # (0-1.0) k/uL Eosinophils # (0-0.7) k/uL Basophils # (0-0.2) k/uL PT 10.4 (10.0-12.5) sec INR 0.9 (<1.2) APTT 23.4 (22.0-30.0) sec Sodium 139 (137-145) mmol/L Potassium 4.3 (3.5-5.1) mmol/L Chloride 103 (98-107) mmol/L Carbon Dioxide 27 (22-30) mmol/L Anion Gap 9 mmol/L BUN 26 H (7-17) mg/dL Creatinine 0.76 (0.52-1.04) mg/dL Est GFR (CKD-EPI)AfAm >90 (>60 ml/min/1.73 sqM) Est GFR (CKD-EPI)NonAf >90 (>60 ml/min/1.73 sqM) Glucose 99 (74-99) mg/dL Calcium 9.2 (8.4-10.2) mg/dL Magnesium 2.2 (1.6-2.3) mg/dL Total Bilirubin 0.3 (0.2-1.3) mg/dL AST 21 (14-36) U/L ALT 19 (4-34) U/L Alkaline Phosphatase 71 (38-126) U/L Troponin I <0.012 (0.000-0.034) ng/mL Total Protein 7.3 (6.3-8.2) g/dL Albumin 4.4 (3.5-5.0) g/dL Urine Color Urine Appearance (Clear) Urine pH (5.0-8.0) Ur Specific [place] (1.001-1.035) Urine Protein (Negative) Urine Glucose (UA) (Negative) Urine Ketones (Negative) Urine Blood (Negative) Urine Nitrite (Negative) Urine Bilirubin (Negative) Urine Urobilinogen (<2.0) mg/dL Ur Leukocyte Esterase (Negative) Urine RBC (0-5) /hpf Urine WBC (0-5) /hpf Ur Squamous Epith Cells (0-4) /hpf Urine Bacteria (None) /hpf Urine HCG, Qual (Not Detectd) Influenza Type A (PCR) (Not Detectd) Influenza Type B (PCR) (Not Detectd) RSV (PCR) (Not Detectd) SARS-CoV-2 (PCR) (Not Detectd) 08/05/24 Range/Units 19:48 WBC (3.8-10.6) k/uL RBC (3.80-5.40) m/uL Hgb (11.4-16.0) gm/dL Hct (34.0-46.0) % MCV (80.0-100.0) fL MCH (25.0-35.0) pg MCHC (31.0-37.0) g/dL RDW (11.5-15.5) % Plt Count (150-450) k/uL MPV Neutrophils % % Lymphocytes % % Monocytes % % Eosinophils % % Basophils % % Neutrophils # (1.3-7.7) k/uL Lymphocytes # (1.0-4.8) k/uL Monocytes # (0-1.0) k/uL Eosinophils # (0-0.7) k/uL Basophils # (0-0.2) k/uL PT (10.0-12.5) sec INR (<1.2) APTT (22.0-30.0) sec Sodium (137-145) mmol/L Potassium (3.5-5.1) mmol/L Chloride (98-107) mmol/L Carbon Dioxide (22-30) mmol/L Anion Gap mmol/L BUN (7-17) mg/dL Creatinine (0.52-1.04) mg/dL Est GFR (CKD-EPI)AfAm (>60 ml/min/1.73 sqM) Est GFR (CKD-EPI)NonAf (>60 ml/min/1.73 sqM) Glucose (74-99) mg/dL Calcium (8.4-10.2) mg/dL Magnesium (1.6-2.3) mg/dL Total Bilirubin (0.2-1.3) mg/dL AST (14-36) U/L ALT (4-34) U/L Alkaline Phosphatase (38-126) U/L Troponin I (0.000-0.034) ng/mL Total Protein (6.3-8.2) g/dL Albumin (3.5-5.0) g/dL Urine Color Urine Appearance (Clear) Urine pH (5.0-8.0) Ur Specific [place] (1.001-1.035) Urine Protein (Negative) Urine Glucose (UA) (Negative) Urine Ketones (Negative) Urine Blood (Negative) Urine Nitrite (Negative) Urine Bilirubin (Negative) Urine Urobilinogen (<2.0) mg/dL Ur Leukocyte Esterase (Negative) Urine RBC (0-5) /hpf Urine WBC (0-5) /hpf Ur Squamous Epith Cells (0-4) /hpf Urine Bacteria (None) /hpf Urine HCG, Qual (Not Detectd) Influenza Type A (PCR) Not Detected (Not Detectd) Influenza Type B (PCR) Not Detected (Not Detectd) RSV (PCR) Not Detected (Not Detectd) SARS-CoV-2 (PCR) Not Detected (Not Detectd) Disposition Clinical Impression: Headache, Near syncope, Episode of hypertension Disposition: HOME SELF-CARE Condition: Good Instructions (If sedation given, give patient instructions): Acute Headache (ED), Near Syncope (ED) Additional Instructions: Follow-up with PCP. Report back to ER with any new or worsening symptoms. Is patient prescribed a controlled substance at d/c from ED?: No Referrals: Dhiraj Roque DO [Primary Care Provider] - 1-2 days Time of Disposition: 22:21
[2024-08-05 21:54] LABS: INR 0.9 (<1.2); Partial Thromboplastin Time 23.4 sec (22.0-30.0); Prothrombin Time 10.4 sec (10.0-12.5)
[2024-08-05] MEDS: LORazepam 2 MG/ML INJ IV STA (22:33)
[2024-08-05 23:29] VITALS: BP 148/90; PULSE 90; RESP 18; TEMP 98.1
== END 2024-08-05 22:45 | disposition home or self-care (01) ==
LOC: EC 18:18
DX: R51.9 Headache, unspecified (principal); R55 Syncope and collapse; I10 Essential (primary) hypertension; Z87.891 Personal history of nicotine dependence; W06.XXXA Fall from bed, initial encounter
CPT/HCPCS: 36415; 93005; 80053; 83735; 84484; 85025; 85610; 85730; 81001; 81025; 87636; 71046; 70450; 99285; 96374; 96375; 96361; J2060; J1885

== ENCOUNTER 2024-08-07 15:43 | Emergency (ER) | payer OTHER ==
--- NOTE | 2024-08-07 16:14 | ED ---
Headache HPI - General Chief Complaint: Headache Stated Complaint: Recheck-Hypertension,R sided abd pain Time Seen by Provider: 08/07/24 15:50 Mode of arrival: ambulatory Limitations: no limitations - History of Present Illness Initial Comments: This patient is a 49-year-old woman who presents to have evaluation of headache and high blood pressure. The patient states that she started having severe headache on . She describes it as diffuse, aching type of pain. She has not noted worsening or relieving factors. It was not related to exertion. She was seen here at that time in the emergency department and had CT scan. She also was found to have hypertension then. She does not have history of hypertension nor is she taking any medication for that. She went home and she has been taking [id number] medications but the headache has not resolved. She denies any associated fever or chills. No neck stiffness or pain. No neurologic symptoms. MD Complaint: headache Onset/Timin -: days(s) Onset Description: gradual Location: diffuse Severity: severe Quality: aching Consistency: constant Improves With: nothing Worsens With: none Context: occurred at rest Treatments Prior to Arrival: Ibuprofen - Related Data On Hormonal Control: No Home Medications Medication Instructions Recorded Confirmed LORazepam [Ativan] 0.5 mg PO BID PRN 05/02/22 08/05/24 Levothyroxine Sodium [Synthroid] 112 mcg PO DAILY 05/02/22 08/05/24 Previous Rx's Medication Instructions Recorded lisinopriL [Zestril] 5 mg PO DAILY #30 tab 08/07/24 Allergies Allergy/AdvReac Type Severity Reaction Status Date / Time morphine Allergy Rash/Hives Verified 08/07/24 15:48 Penicillins Allergy Anaphylaxis Verified 08/07/24 15:48 hydromorphone [From Dilaudid] AdvReac Hallucinati Verified 08/07/24 15:48 ons Review of Systems ROS Statement: Those systems with pertinent positive or pertinent negative responses have been documented in the HPI. ROS Other: All systems not noted in ROS Statement are negative. Constitutional: Denies: fever, chills, weakness Eyes: Denies: eye pain, vision change ENT: Reports: congestion. Denies: ear pain, hearing loss Respiratory: Denies: cough, dyspnea Cardiovascular: Denies: chest pain, syncope Gastrointestinal: Denies: abdominal pain, vomiting, diarrhea Genitourinary: Denies: dysuria, hematuria Musculoskeletal: Denies: back pain Skin: Denies: rash Neurological: Reports: headache. Denies: weakness, numbness, paresthesias, confusion Past Medical History Past Medical History: GERD/Reflux Additional Past Medical History / Comment(s): BACK PAIN, anxiety & panic attacks History of Any Multi-Drug Resistant Organisms: None Reported Past Surgical History: Hernia Repair Additional Past Surgical History / Comment(s): EGD Past Anesthesia/Blood Transfusion Reactions: No Reported Reaction Additional Past Anesthesia/Blood Transfusion Reaction / Comment(s): FIRST ANESTHETIC Past Psychological History: Anxiety, Panic Disorder Smoking Status: Former smoker Past Alcohol Use History: None Reported Past Drug Use History: None Reported, Marijuana - Past Family History Mother Family Medical History: No Reported History General Exam Limitations: no limitations General appearance: alert, in no apparent distress Head exam: Present: atraumatic, normocephalic Eye exam: Present: normal appearance. Absent: scleral icterus, conjunctival injection ENT exam: Present: normal oropharynx Neck exam: Present: normal inspection, full ROM. Absent: tenderness, meningismus Respiratory exam: Present: normal lung sounds bilaterally. Absent: respiratory distress, wheezes, rales, rhonchi, stridor, accessory muscle use Cardiovascular Exam: Present: regular rate, normal rhythm, normal heart sounds. Absent: systolic murmur, diastolic murmur, rubs, gallop GI/Abdominal exam: Present: soft. Absent: tenderness, guarding, rebound, mass Extremities exam: Present: normal inspection, normal capillary refill. Absent: pedal edema, calf tenderness Back exam: Present: normal inspection. Absent: CVA tenderness (R), CVA tenderness (L) Neurological exam: Present: alert, oriented X3, CN II-XII intact. Absent: motor sensory deficit Skin exam: Present: warm, dry, intact, normal color. Absent: rash Course Vital Signs 08/07/24 08/07/24 08/07/24 15:46 17:26 17:57 Temperature 97.8 F 97.9 F Pulse Rate 105 H 85 Respiratory 20 16 Rate Blood Pressure 179/105 116/75 O2 Sat by Pulse 100 98 Oximetry Medical Decision Making - Medical Decision Making Was pt. sent in by a medical professional or institution (, PA, STATIONARY ENGINEER APPRENTICE, urgent care, hospital, or long term...) When possible be specific @ -[No] Did you speak to anyone other than the patient for history (EMS, parent, family, police, friend...)? What history was obtained from this source @ -[No] Did you review nursing and triage notes (agree or disagree)? Why? @ -[I reviewed and agree with nursing and triage notes] Were old charts reviewed (outside hosp., previous admission, EMS record, old EKG, old radiological studies, urgent care reports/EKG's, long term records)? Report findings @ -[No old charts were reviewed] Differential Diagnosis (chest pain, altered mental status, abdominal pain women, abdominal pain men, vaginal bleeding, weakness, fever, dyspnea, syncope, headache, dizziness, GI bleed, back pain, seizure, CVA, palpatations, mental health, musculoskeletal)? @ -[Differential Headache: Migraine, tension, cluster, carbon monoxide, central venous thrombosis, pension karma temporal arteritis, acute closure glaucoma, intercranial hemorrhage, mastoiditis, sinusitis, head injury, this is not meant to be an all-inclusive list. EKG interpreted by me (3pts min.). @ -[I interpreted as above] X-rays interpreted by me (1pt min.). @ -[None done] CT interpreted by me (1pt min.). @ -[CT scan is considered, but patient states this is not worst headache of life, no red flag signs or symptoms, and the patient did have good relief with treatment U/S interpreted by me (1pt. min.). @ -[None done] What testing was considered but not performed or refused? (CT, X-rays, U/S, labs)? Why? @ -[None] What meds were considered but not given or refused? Why? @ -[None] Did you discuss the management of the patient with other professionals (professionals i.e. , PA, STATIONARY ENGINEER APPRENTICE, lab, RT, psych nurse, rn social services, analysis tester, teacher, photographic intelligence officer, shelter case manager)? Give summary @ -[No] Was smoking cessation discussed for >3mins.? @ -[No] Was critical care preformed (if so, how long)? @ -[No] Were there social determinants of health that impacted care today? How? (Homelessness, low income, unemployed, alcoholism, drug addiction, transportation, low edu. Level, literacy, decrease access to med. care, alf, rehab)? @ -[No] Was there de-escalation of care discussed even if they declined (Discuss DNR or withdrawal of care, Hospice)? DNR status @ -[No] What co-morbidities impacted this encounter? (DM, HTN, Smoking, COPD, CAD, Cancer, CVA, ARF, Chemo, Hep., AIDS, mental health diagnosis, sleep apnea, morbid obesity)? @ -[Hypertension Was patient admitted / discharged? Hospital course, mention meds given and rout e, prescriptions, significant lab abnormalities, going to OR and other pertinent info. @ -[Patient is 49-year-old woman here for evaluation of headache and also having associated hypertension. She did experience good relief with treatment, stable to continue as outpatient. Return parameters discussed Undiagnosed new problem with uncertain prognosis? @ -[No] Drug Therapy requiring intensive monitoring for toxicity (Heparin, Nitro, Insulin, Cardizem)? @ -[No] Were any procedures done? @ -[No] Diagnosis/symptom? @ -[Acute headache Acute on chronic hypertension Acute, or Chronic, or Acute on Chronic? @ -[ Uncomplicated (without systemic symptoms) or Complicated (systemic symptoms)? @ -Uncomplicated Side effects of treatment? @ -[No] Exacerbation, Progression, or Severe Exacerbation? @ -[No] Poses a threat to life or bodily function? How? (Chest pain, [place], [place], pneumonia, PE, COPD, DKA, ARF, appy, cholecystitis, CVA, Diverticulitis, Homicidal, Suicidal, threat to staff... and all critical care pts) @ -[No] All treatments are based on ideal body weight as in ED triage - Lab Data Result diagrams: 08/07/24 16:21 08/07/24 16:21 Lab Results 08/07/24 08/07/24 Range/Units 16:21 16:21 WBC 7.6 (3.8-10.6) k/uL RBC 4.90 (3.80-5.40) m/uL Hgb 14.3 (11.4-16.0) gm/dL Hct 43.9 (34.0-46.0) % MCV 89.7 (80.0-100.0) fL MCH 29.1 (25.0-35.0) pg MCHC 32.5 (31.0-37.0) g/dL RDW 12.9 (11.5-15.5) % Plt Count 304 (150-450) k/uL MPV 7.0 Neutrophils % 59 % Lymphocytes % 33 % Monocytes % 4 % Eosinophils % 2 % Basophils % 1 % Neutrophils # 4.5 (1.3-7.7) k/uL Lymphocytes # 2.5 (1.0-4.8) k/uL Monocytes # 0.3 (0-1.0) k/uL Eosinophils # 0.1 (0-0.7) k/uL Basophils # 0.1 (0-0.2) k/uL Sodium 139 (137-145) mmol/L Potassium 4.1 (3.5-5.1) mmol/L Chloride 101 (98-107) mmol/L Carbon Dioxide 29 (22-30) mmol/L Anion Gap 9 mmol/L BUN 17 (7-17) mg/dL Creatinine 0.79 (0.52-1.04) mg/dL Est GFR (CKD-EPI)AfAm >90 (>60 ml/min/1.73 sqM) Est GFR (CKD-EPI)NonAf 88 (>60 ml/min/1.73 sqM) Glucose 87 (74-99) mg/dL Calcium 9.5 (8.4-10.2) mg/dL Magnesium 1.9 (1.6-2.3) mg/dL Total Bilirubin 0.5 (0.2-1.3) mg/dL AST 22 (14-36) U/L ALT 18 (4-34) U/L Alkaline Phosphatase 74 (38-126) U/L Total Protein 7.6 (6.3-8.2) g/dL Albumin 4.5 (3.5-5.0) g/dL - EKG Data -: EKG Interpreted by Ct EKG shows normal: sinus rhythm, axis (Rate 79 bpm), intervals (Normal), QRS complexes (Normal) Interpretation: nonspecific ST-T wave changes Disposition Clinical Impression: Headache, Hypertension Disposition: HOME SELF-CARE Condition: Good Instructions (If sedation given, give patient instructions): Acute Headache (ED), Hypertension (ED) Prescriptions: lisinopriL [Zestril] 5 mg PO DAILY #30 tab Is patient prescribed a controlled substance at d/c from ED?: No Referrals: Dhiraj Roque, [Primary Care Provider] - 1-2 days
[2024-08-07] MEDS: SODIUM CHLORIDE 0.9% 500 ML 500 ML IV STA (16:24)
[2024-08-07] MEDS: cloNIDine HCL 0.2 MG TAB PO STA (16:24)
[2024-08-07] MEDS: METOCLOPRAMIDE 5 MG/ML 2 ML VIAL IVP STA (16:24)
[2024-08-07 17:04] LABS: Basophils # (A) 0.1 k/uL (0-0.2); Basophils % (A) 1 %; Eosinophils # (A) 0.1 k/uL (0-0.7); Eosinophils % (A) 2 %; HCT 43.9 % (34.0-46.0); HGB 14.3 gm/dL (11.4-16.0); Lymphocytes # (A) 2.5 k/uL (1.0-4.8); Lymphocytes % (A) 33 %; MCH 29.1 pg (25.0-35.0); MCHC 32.5 g/dL (31.0-37.0); MCV 89.7 fL (80.0-100.0); Monocytes # (A) 0.3 k/uL (0-1.0); Monocytes % (A) 4 %; Neutrophils # (A) 4.5 k/uL (1.3-7.7); Neutrophils % (A) 59 %; Platelet Count 304 k/uL (150-450); RDW 12.9 % (11.5-15.5); WBC 7.6 k/uL (3.8-10.6)
[2024-08-07 17:22] LABS: ALT 18 U/L (4-34); AST 22 U/L (14-36); African American GFR (CKD) >90 (>60 ml/min/1.73 sqM); Albumin 4.5 g/dL (3.5-5.0); Alkaline Phosphatase 74 U/L (38-126); Anion Gap 9 mmol/L; Blood Urea Nitrogen 17 mg/dL (7-17); Calcium 9.5 mg/dL (8.4-10.2); Carbon Dioxide 29 mmol/L (22-30); Chloride 101 mmol/L (98-107); Glucose 87 mg/dL (74-99); Magnesium 1.9 mg/dL (1.6-2.3); Non-African American GFR(CKD) 88 (>60 ml/min/1.73 sqM); Potassium 4.1 mmol/L (3.5-5.1); Sodium 139 mmol/L (137-145); Total Bilirubin 0.5 mg/dL (0.2-1.3); Total Protein 7.6 g/dL (6.3-8.2)
[2024-08-07 17:28] VITALS: BP 116/75; PULSE 85; RESP 16
[2024-08-07 17:58] VITALS: TEMP 97.9
== END 2024-08-07 17:58 | disposition home or self-care (01) ==
LOC: EC 15:43
DX: R51.9 Headache, unspecified (principal); I10 Essential (primary) hypertension; Z87.891 Personal history of nicotine dependence; Z88.0 Allergy status to penicillin; Z88.5 Allergy status to narcotic agent
CPT/HCPCS: 36415; 93005; 80053; 83735; 85025; 99284; 96374; 96361; J2765

== ENCOUNTER → 2024-10-07 | Outpatient (CLI) | payer OTHER ==
[2024-10-07 15:53] LABS: T4, Free (Free Thyroxine) 1.54 ng/dL (0.80-1.80)
== END | disposition home or self-care (01) ==
LOC: LABWHC1 09:35
PROVIDERS: ATTEND Family Medicine
DX: I15.9 Secondary hypertension, unspecified (principal); E06.3 Autoimmune thyroiditis; E89.0 Postprocedural hypothyroidism
CPT/HCPCS: 36415; 84439; 84443; 84481